=== PATIENT | male | born 1970 | race African-American/Black ===

== ENCOUNTER 2020-10-23 17:56 | Inpatient (IN) | payer OTHER, SELFPAY ==
[2020-10-23] VITALS (7 sets, daily range): BP systolic 98–120; BP diastolic 58–79; PULSE 68–90; RESP 16–20; O2SAT 96–99; BMI 33.0
--- NOTE | ~2020-10-23 | CT_ITS ---
EXAMINATION: CT KNEE WITHOUT CONTRAST, LEFT CLINICAL INFORMATION: Tibial fracture. COMPARISON: Left femur as well as left tibia and fibular fractures done earlier the same day. TECHNIQUE: Contiguous axial CT images of the left knee were obtained without contrast. Sagittal and coronal reformats were provided and reviewed. This CT examination was performed using dose optimization techniques as appropriate, variously including the following: *Automated exposure control. *Adjustment of mA and/or kV according to patient size (this includes techniques or standardized protocols for targeted exams where dose is matched to indication/reason for exam; i.e. extremities or head). *Use of iterative reconstruction technique. DOSE: 209 mGy-cm FINDINGS: There is a severely comminuted tibial plateau fracture with dominant oblique components extending through the tibial diaphysis. Additionally, there appears to be a dominant transverse component within the tibial diaphysis. Multiple fracture lines contact the left knee articular surface oriented in both the coronal and sagittal planes. There is severe comminution of the tibial spine extending to the posterior aspect of the tibial plateau as well as laterally adjacent to the proximal tibiofibular joint. There are innumerable displaced fracture fragments. The dominant articular surface fracture fragment measures up to 2.4 cm at the lateral tibial plateau with approximately 1.0 cm of cortical step-off. Findings are consistent with a Schatzker type fracture. No distal femoral fracture. No lytic or blastic osseous lesion. Large lipohemarthrosis. The visualized flexor and extensor tendons are grossly intact, however, evaluation is limited on CT examination. CT/CT knee LT wo con IMPRESSION: Severely comminuted and displaced tibial plateau fracture, likely consistent with a Schatzker type fracture. Large lipohemarthrosis.
--- NOTE | ~2020-10-23 | FL_ITS ---
EXAMINATION: Intraoperative fluoroscopy CLINICAL INFORMATION: ORIF left tibia COMPARISON: Left knee CT and radiographs of the left lower extremity October 23, 2020 TECHNIQUE: Intraoperative fluoroscopy was provided for use by Dr. Mcintosh. A total of 3 images were saved to PACS. A radiologist was not present during imaging. Today's dictation is only for administrative purposes to document intraoperative fluoroscopic usage. TOTAL FLUOROSCOPIC TIME: 0.4 minutes FL/FL guidance in OR FINDINGS~\^^ Intraoperative fluoroscopy provided for use by Dr. Mcintosh. Please see operative note for detailed findings.
--- NOTE | ~2020-10-23 | XR_ITS ---
EXAMINATION: XR ANKLE, LEFT CLINICAL INFORMATION: Fall. Suspected tibia-fibula fracture COMPARISON: None TECHNIQUE: AP and lateral views of the left ankle. FINDINGS: No fracture seen. Talar dome and ankle mortise are intact. XR/XR ankle LT 2V IMPRESSION: No acute osseous abnormality of the left ankle.
--- NOTE | ~2020-10-23 | XR_ITS ---
EXAMINATION: XR TIBIA-FIBULA, LEFT XR FEMUR. LEFT CLINICAL INFORMATION: Fall. Suspect fracture. COMPARISON: None TECHNIQUE: AP and lateral radiographs of the left tibia and fibula. AP and lateral radiographs of the left femur. FINDINGS: The left hip is in alignment. There is no fracture of the left femur. The major bony structures of the knee are in alignment. There is a complex comminuted tibial plateau including a comminuted transversely oriented fracture of the proximal tibial diaphysis. The plateau fracture involves the tibial spines, the medial and lateral tibial plateaus with diastases of the major fracture fragments by several millimeters. No definite depression of the plateau is visualized, though the fracture is not centered in these radiographs. The distal fragment of the diaphyseal fracture is displaced laterally and anteriorly by approximately 1 cm with 5 mm of overriding and anterior angulation of the fracture apex. No definite fracture of the fibula. The tibiofibular articulations appear to be maintained. There is a 3 mm metallic foreign body in the soft tissues lateral to the patella. On lateral radiograph there is a lipohemarthrosis. XR/XR tibia fibula LT 2V IMPRESSION: Complex comminuted of the tibial plateau involving both the medial and lateral aspects with diastases of the fracture fragments and suspected involvement of the tibial spines. No definite depression is identified, though further evaluation with dedicated radiographs of the knee could be helpful. There is an associated comminuted transversely oriented fracture of the proximal tibial diaphysis with anterolateral displacement of the distal fracture fragment. Together this would constitute a Schatzker fracture. 3 mm radiopaque density either within the soft tissues medial to the patella or on the skin surface.
--- NOTE | ~2020-10-23 | FL_ITS ---
EXAMINATION: Intraoperative fluoroscopy CLINICAL INFORMATION: Left tibia fracture COMPARISON: Intraoperative fluoroscopy October 25, [address] left knee October 23, 2020 TECHNIQUE: Intraoperative fluoroscopy was provided for use by Dr. Mcintosh. A total of 9 images were saved to PACS. A radiologist was not present during imaging. Today's dictation is only for administrative purposes to document intraoperative fluoroscopic usage. TOTAL FLUOROSCOPIC TIME: 3.2 minutes FL/FL guidance in OR FINDINGS~\^^ Intraoperative fluoroscopy provided for use by Dr. Mcintosh. Please see operative note for detailed findings.
--- NOTE | 2020-10-23 18:09 | ED_ITS ---
HPI - Fall General Chief Complaint: Extremity Injury, Lower Stated Complaint: LEFT LEG INJURY Time Seen by Provider: 10/23/20 19:24 Source: patient Mode of arrival: ambulatory Limitations: language barrier History of Present Illness HPI Narrative: 50-year-old male presents via EMS with visibly deformed left lower extremity. Patient was drinking beer with his friends, tried to jump over a fence, got his leg stuck on the fence. complaint: fall Onset (ago): hour(s) (Within the hour of arrival) Fall from: from height (distance) Fall witnessed: yes, by bystander Loss of consciousness: none Prolonged down time: no Symptoms prior to fall: other (Alcohol intoxication) Context: alcohol use Location of injury - extremities: left: lower leg Severity: severe Severity scale (1-10): 10 Quality: aching Associated symptoms (after fall): denies Related Data Home Medications Medication Instructions Recorded Confirmed lisinopril 30 mg tablet 1 tab PO DAILY 10/23/20 10/23/20 Allergies Allergy/AdvReac Type Severity Reaction Status Date / Time No Known Allergies Allergy Unverified 11/13/19 16:30 Review of Systems Review of Systems: Constitutional: No Fever, No Chills ENT/Mouth: No Ear Pain, No Hoarseness, No sore throat Eyes: No Eye Pain, No Swelling, No Redness, No Foreign Body Cardiovascular: No Chest Pain, No SOB Respiratory: No Cough, No Dyspnea Gastrointestinal: No Nausea, No Vomiting, No Diarrhea, No abdominal Pain Genitourinary: No Dysuria, No Hematuria Musculoskeletal: positive leg pain, No Myalgias, No Joint Swelling Skin: No Skin lacerations, No rash Neuro: No Weakness, No Numbness, No Paresthesias, No Loss of Consciousness, No Dizziness, No Headache Psych: No Anxiety/Panic, No Depression Heme/Lymph: no easy bruising, no Lymphadenopathy Endocrine: No Polyuria, No Polydipsia Yes all other systems are reviewed and are negative PMFSH Past Medical History Attestation statement: The following information was validated with the patient. Source: old records reviewed Medical History HTN (hypertension) Social History Social History Advance Directives: No Advance Directives Information Provided: Yes Physical Exam Vital Signs: Vital Signs: Last Vital Signs Pulse 68 10/23/20 22:25 Resp 16 10/23/20 23:10 BP 98/61 10/23/20 21:34 Pulse Ox 96 10/23/20 21:34 Body Mass Index 33.0 Appearance: Alert. Oriented X3. Moderate distress. Eyes: Pupils equal, round and reactive to light. ENT: Pharynx normal. Neck: Normal inspection. Neck supple. CVS: Normal heart rate and rhythm. Pulses normal. Respiratory: No respiratory distress. Breath sounds normal. Abdomen: Soft and nontender. Skin: Skin warm and dry. Normal skin color. Normal skin turgor. Extremities: Visibly deformed left lower extremity, laceration to the left knee, left hallux and left toe. Neuro: No motor deficit. No sensory deficit. Course Course Course Narrative: 50-year-old male presents with left lower extremity visible derangement after falling off of a fence. X-rays are positive for fracture. Discussion with Orthopedics at 7:09 p.m.. Patient has brisk capillary refill, equal pedal pulses. Pelvis is stable. No crepitus. The patient is alert oriented x4, states to be intoxicated but acutely aware of his surroundings. 7:35 p.m. Orthopedics at bedside. Plan is to admit for surgery for tomorrow morning. 9:36 p.m. splinting complete. Patient reports 8/10 pain, blood pressure 90/61. Will order fentanyl. [employer] supervisor utilized for all correspondence. 10:00 p.m. patient continues with brisk capillary refill and equal pulses to the extremities. Pain is well managed, fentanyl was not given, once patient was resting and splinting with complete, pain was 2/10. Dr. Mcintosh at bedside at 11:00 p.m. for evaluation. Consultations Consultation #1: Deyvi Time: 19:09 Consultation #2: Dayna Time: 22:00 Procedures Orthopedic Splinting/Casting Injury #1: Side: left Lower Extremity Injury Location: lower leg Lower Extremity Immobilizer: posterior splint, stirrup splint and [place] wrap MDM - Fall Differential Diagnosis Differential diagnosis: Likely dislocation and fracture Medical Records Attestation: I reviewed the patient's medical records. Lab Data Attestation: I reviewed the patient's lab results. Result diagrams: 10/23/20 19:53 10/23/20 19:56 Labs: Lab Results 10/23/20 10/23/20 10/23/20 Range/Units 19:53 19:56 19:56 WBC 6.4 (4.8-10.8) X10*3/uL RBC 4.52 L (4.60-5.80) X10*6/uL Hgb 14.2 (14.0-18.0) g/dl Hct 40.7 L (42-52) % MCV 90.0 (80-98) fL MCH 31.4 (27.0-33.0) pg MCHC 34.9 (31.0-36.0) g/dl RDW 12.6 (11.0-16.0) % Plt Count 112 L (160-400) X10*3/uL MPV 11.5 (9.4-12.4) fL Immature Gran % (Auto) 0.3 (0.0-0.4) % Neut % (Auto) 61.8 (45-73) % Lymph % (Auto) 28.7 (20-40) % [place] % (Auto) 7.8 (2-11) % Eos % (Auto) 0.6 (0-4) % Baso % (Auto) 0.8 (0-2) % Lymph # (Auto) 1.8 (1.2-4.9) X10*3/uL [place] # (Auto) 0.5 (0.1-1.2) X10*3/uL Eos # (Auto) 0.0 (0.0-0.4) X10*3/uL Baso # (Auto) 0.1 (0.0-0.2) X10*3/uL Abs Immat Gran (auto) 0.02 (0.00-0.03) X10*3/uL Absolute Neuts (auto) 4.0 (2.0-8.3) X10*3/uL Absolute Nucleated RBC 0.000 (0.0-0.012) X10*3/uL Nucleated RBC % (auto) 0.0 (0.0-0.2) /100WBC PT 12.2 (9.9-13.0) SEC INR 1.1 (0.9-1.1) APTT 34.4 (24.1-38.0) SEC Sodium 135 (135-145) mmol/L Potassium 4.1 (3.3-5.1) mmol/L Chloride 102 (96-108) mmol/L Carbon Dioxide 21 L (22-29) mmol/L Anion Gap 16 (12-20) BUN 13 (9-16) mg/dL Creatinine 0.93 (0.5-1.4) mg/dL Estim Creat Clear Calc 126.7 Estimated GFR > 60 Random Glucose 105 (60-115) mg/dL Calcium 9.1 (8.4-10.2) mg/dL COVID-19 ([facility]) (Negative) COVID-19 Clin Com Blood Type Antibody Screen 10/23/20 10/23/20 Range/Units 20:30 23:02 WBC (4.8-10.8) X10*3/uL RBC (4.60-5.80) X10*6/uL Hgb (14.0-18.0) g/dl Hct (42-52) % MCV (80-98) fL MCH (27.0-33.0) pg MCHC (31.0-36.0) g/dl RDW (11.0-16.0) % Plt Count (160-400) X10*3/uL MPV (9.4-12.4) fL Immature Gran % (Auto) (0.0-0.4) % Neut % (Auto) (45-73) % Lymph % (Auto) (20-40) % [place] % (Auto) (2-11) % Eos % (Auto) (0-4) % Baso % (Auto) (0-2) % Lymph # (Auto) (1.2-4.9) X10*3/uL [place] # (Auto) (0.1-1.2) X10*3/uL Eos # (Auto) (0.0-0.4) X10*3/uL Baso # (Auto) (0.0-0.2) X10*3/uL Abs Immat Gran (auto) (0.00-0.03) X10*3/uL Absolute Neuts (auto) (2.0-8.3) X10*3/uL Absolute Nucleated RBC (0.0-0.012) X10*3/uL Nucleated RBC % (auto) (0.0-0.2) /100WBC PT (9.9-13.0) SEC INR (0.9-1.1) APTT (24.1-38.0) SEC Sodium (135-145) mmol/L Potassium (3.3-5.1) mmol/L Chloride (96-108) mmol/L Carbon Dioxide (22-29) mmol/L Anion Gap (12-20) BUN (9-16) mg/dL Creatinine (0.5-1.4) mg/dL Estim Creat Clear Calc Estimated GFR Random Glucose (60-115) mg/dL Calcium (8.4-10.2) mg/dL COVID-19 ([facility]) Negative (Negative) COVID-19 Clin Com See Note Blood Type O Positive Antibody Screen NEGATIVE Imaging Data Tib fib, femur, ankle x-ray: Attestation: I personally reviewed and interpreted this imaging study as follows: Radiologist's impression: EXAMINATION: XR TIBIA-FIBULA, LEFT XR FEMUR. LEFT CLINICAL INFORMATION: Fall. Suspect fracture.? COMPARISON: None? TECHNIQUE: AP and lateral radiographs of the left tibia and fibula. AP and lateral radiographs of the left femur.? FINDINGS: The left hip is in alignment. There is no fracture of the left femur. The major bony structures of the knee are in alignment. There is a complex comminuted tibial plateau including a comminuted transversely oriented fracture of the proximal tibial diaphysis. The plateau fracture involves the tibial spines, the medial and lateral tibial plateaus with diastases of the major fracture fragments by several millimeters. No definite depression of the plateau is visualized, though the fracture is not centered in these radiographs. The distal fragment of the diaphyseal fracture is displaced laterally and anteriorly by approximately 1 cm with 5 mm of overriding and anterior angulation of the fracture apex. No definite fracture of the fibula. The tibiofibular articulations appear to be maintained. There is a 3 mm metallic foreign body in the soft tissues lateral to the patella.? On lateral radiograph there is a lipohemarthrosis. XR/XR femur LT 2V IMPRESSION: Complex comminuted of the tibial plateau involving both the medial and lateral aspects with diastases of the fracture fragments and suspected involvement of the tibial spines. No definite depression is identified, though further evaluation with dedicated radiographs of the knee could be helpful. There is an associated comminuted transversely oriented fracture of the proximal tibial diaphysis with anterolateral displacement of the distal fracture fragment. Together this would constitute a Schatzker fracture. ? 3 mm radiopaque density either within the soft tissues medial to the patella or on the skin surface. Knee CT: Attestation: I personally reviewed and interpreted this imaging study as follows: Radiologist's impression: FINDINGS: There is a severely comminuted tibial plateau fracture with dominant oblique components extending through the tibial diaphysis. Additionally, there appears to be a dominant transverse component within the tibial diaphysis. Multiple fracture lines contact the left knee articular surface oriented in both the coronal and sagittal planes. There is severe comminution of the tibial spine extending to the posterior aspect of the tibial plateau as well as laterally adjacent to the proximal tibiofibular joint. There are innumerable displaced fracture fragments. The dominant articular surface fracture fragment measures up to 2.4 cm at the lateral tibial plateau with approximately 1.0 cm of cortical step-off. Findings are consistent with a Schatzker type fracture. No distal femoral fracture. No lytic or blastic osseous lesion. Large lipohemarthrosis. The visualized flexor and extensor tendons are grossly intact, however, evaluation is limited on CT examination. CT/CT knee LT wo con IMPRESSION: Severely comminuted and displaced tibial plateau fracture, likely consistent with a Schatzker type fracture. Large lipohemarthrosis.? ECG Data Attestation: I personally reviewed and interpreted this ECG as follows: ECG interpretation date: 10/23/20 ECG interpretation time: 20:06 Prior ECG tracings: not available for review Interpretation: Vent. Rate : 077 BPM ? ? Atrial Rate : 077 BPM ?? P-R Int : 154 ms? QRS Dur : 110 ms ? ? QT Int : 396 ms ? ? ? P-R-T Axes : 046 005 015 degrees ?? QTc Int : 448 ms ? Normal sinus rhythm Normal ECG No previous ECGs available Critical Care Time Critical Care Time Critical Care Time: Yes Total Critical Care Time: 45 Attestation: I have personally provided critical care time exclusive of time spent on separately billable procedures. Time includes review of laboratory data, radiology results, discussion with consultants, and monitoring for potential decompensation. Interventions were performed as documented. Discharge Plan Discharge Clinical Impression: Fracture of tibial plateau Qualifiers: Encounter type: initial encounter Fracture type: closed Laterality: left Qualified Code(s): S82.142A - Displaced bicondylar fracture of left tibia, initial encounter for closed fracture Patient Disposition: Admitted As Inpatient Interventions: Admission Worksheet (ED) Last Done: 10/24/20 00:40 Discharge Date/Time: 10/24/20 00:40
--- NOTE | 2020-10-23 19:25 | ECG_ITS ---
Test Reason : ETOH Blood Pressure : / mmHG Vent. Rate : 077 BPM Atrial Rate : 077 BPM P-R Int : 154 ms QRS Dur : 110 ms QT Int : 396 ms P-R-T Axes : 046 005 015 degrees QTc Int : 448 ms Normal sinus rhythm Normal ECG No previous ECGs available Referred By: Vy Clark Electronically Signed By:LITZY TREVIÑO
[2020-10-23] MEDS: Morphine Sulfate 4 MG/ML CARTRIDGE IVPUSH (19:34)
[2020-10-23] MEDS: Diphth,Pertus(ACell),Tet Adult 0.5 ML SYRINGE IM (19:38)
[2020-10-23 19:59] LABS: MANUAL DIFF FLAG NO
[2020-10-23 20:03] LABS: Basophils Absolute Auto 0.1 X10*3/uL (0.0-0.2); Basophils Percent Auto 0.8 % (0-2); Eosinophils Percent Auto 0.6 % (0-4); Hematocrit 40.7 % (42-52); Hemoglobin 14.2 g/dl (14.0-18.0); Imm Gran Abs Auto 0.02 X10*3/uL (0.00-0.03); Imm Gran Pct Auto 0.3 % (0.0-0.4); Lymphocytes Absolute Auto 1.8 X10*3/uL (1.2-4.9); Lymphocytes Percent Auto 28.7 % (20-40); Mean Corpuscular HGB Conc 34.9 g/dl (31.0-36.0); Mean Corpuscular Hemoglobin 31.4 pg (27.0-33.0); Mean Platelet Volume 11.5 fL (9.4-12.4); Monocytes Absolute Auto 0.5 X10*3/uL (0.1-1.2); Monocytes Percent Auto 7.8 % (2-11); Neutrophils Percent Auto 61.8 % (45-73); Platelet Count 112 X10*3/uL (160-400); Red Blood Count 4.52 X10*6/uL (4.60-5.80); Red Cell Distribution Width 12.6 % (11.0-16.0); White Blood Count 6.4 X10*3/uL (4.8-10.8)
[2020-10-23 20:09] LABS: INTERNATIONAL NORM RATIO 1.1 (0.9-1.1); Prothrombin Time 12.2 SEC (9.9-13.0)
[2020-10-23 20:11] LABS: Partial Thromboplastin Time 34.4 SEC (24.1-38.0)
[2020-10-23 20:20] LABS: Anion Gap 16 (12-20); Blood Urea Nitrogen 13 mg/dL (9-16); Calcium 9.1 mg/dL (8.4-10.2); Carbon Dioxide 21 mmol/L (22-29); Chloride 102 mmol/L (96-108); Creatinine Clr Calc Pharmacy 126.7; Estimated Glomerular Filt Rate > 60; Glucose Random 105 mg/dL (60-115); Potassium 4.1 mmol/L (3.3-5.1); Sodium 135 mmol/L (135-145)
[2020-10-23] MEDS: HYDROmorphone HCl 2 MG/ML VIAL IVPUSH (21:19)
[2020-10-23] MEDS: fentaNYL citrate/PF 100 MCG/2 ML VIAL 50 MCG IVPUSH (23:10)
--- NOTE | 2020-10-23 23:15 | PC.NURSE ---
pt medicated with Dilaudid at 21:19 prior to cast/splint application pt tolerated cast application well and immediately fell asleep upon completion. pt observed sleeping by this nurse after application of cast, no complaints of pain or facial grimacing noted. per provider, ok to hold subsequent fentanyl order until this time as to not over-sedate pt. this nurse medicated pt with fentanyl per APR. pt laying in bed supine with L leg elevated on pillows. 02 sat probe on finger. no distress noted at this time. call santiago in reach.
[2020-10-23 23:24] LABS: COVID-19 Test Negative (Negative)
[2020-10-23] MEDS: Dextrose 5 % and 0.45 % NaCl 1,000 ML 80 ML IVCONT (23:41)
[2020-10-24] MEDS: 0.9 % Sodium Chloride Flush 3 ML SYRINGE IVFLUSH (00:01)
--- NOTE | 2020-10-24 00:25 | PC.NURSE ---
nurse to nurse report given to Evelio GONZALES
[2020-10-24 00:47] VITALS: BMI 34.0
[2020-10-24 01:47] VITALS: BP 90/62; PULSE 70; RESP 17; TEMP 36.3; O2SAT 96
[2020-10-24] MEDS: HYDROmorphone HCl 0.5 MG/0.5 ML SYRINGE 0.25 MG IVPUSH (02:10)
[2020-10-24] MEDS: oxyCODONE HCl Immed Release 5 MG TABLET 10 MG PO ×2 (02:52→18:41)
[2020-10-24 03:53] VITALS: BP 94/51; PULSE 76; RESP 19; TEMP 36.9; O2SAT 97
--- NOTE | 2020-10-24 04:46 | P.CONAN_ITS ---
HPI - Anesthesia Eval Consult details Narrative: left tibia fracture PMFSH Active Problems Active Problems: All Active Problems (Updated 10/23/20 @ 20:27 by Vy Clark NP) Fracture of tibial plateau (Acute) Past Medical History Medical History HTN (hypertension) Functional capacity: independent ambulation Social History Social History Household Members: Family Housing: House Patient Tobacco Use Status: Current everyday Tobacco user Tobacco use type: Cigarette Cigarette Packs Per Day: 1 Cigarettes Per Day: 20.0 Years Smoked: 20 Smoked in Last 30 Days: Yes Use of substances other than those prescribed or required for medical reasons: Yes Currently Displaying Signs/Symptoms of Drug Intoxication Withdrawal: No Have you been hit, kicked, punched, or otherwise hurt by someone within the past year? If so, by whom?: No Do you feel safe in your current relationship?: Yes Is there a partner from a previous relationship who is making you feel unsafe now?: No Are you made to feel afraid or neglected: No Are you DNR?: No Advance Directives: No Advance Directives Information Provided: Yes Do you have thoughts of harming others: None Do you have a plan to hurt others: No Plan Recently lost weight without trying: No Eating poorly because of decreased appetite: No Nutrition Risks: No Nutritional Risk Poor oral hygiene: No Meds Allergies Allergy/AdvReac Type Severity Reaction Status Date / Time No Known Allergies Allergy Verified 10/24/20 08:48 Active Medications: Current Medications Generic Name Dose Route Start Last Admin Trade Name Freq PRN Reason Stop Dose Admin Acetaminophen 650 mg 10/23/20 22:56 Acetaminophen Supp 650 Mg Supp.Rect FL Q6H PRN Pain, Mild (Pain Scale 1-3) Docusate Sodium 100 mg 10/23/20 22:56 10/23/20 23:41 Docusate Sodium 100 Mg Capsule PO Not Given BID MARIELLE Hydromorphone HCl 0.25 mg 10/23/20 22:56 10/24/20 02:10 Hydromorphone Hcl 0.5 Mg/0.5 Ml Syringe IVPUSH 0.25 mg Q4H PRN Administration Pain, Moderate (Pain Scale 4-6 Protocol Dextrose/Sodium Chloride 1,000 mls @ 80 mls/hr 10/23/20 22:56 10/23/20 23:41 D51/2ns IVCONT 80 mls/hr .[id number] MARIELLE Administration Cefazolin Sodium/Dextrose 2 gm in 50 mls @ 100 mls/hr 10/24/20 07:00 Ancef IV 10/24/20 07:29 PREOP ONE Ondansetron HCl 4 mg 10/23/20 22:56 Ondansetron Odt 4 Mg Tab.Rapdis TRANSLINGU Q6H PRN nausea Oxycodone HCl 10 mg 10/23/20 22:56 10/24/20 02:52 Oxycodone Hcl Immed Release 5 Mg Tablet PO 10 mg Q6H PRN Administration pain Oxycodone HCl 10 mg 10/23/20 22:56 10/23/20 23:42 Oxycodone Hcl Er 10 Mg Tab.Er.12h PO Not Given BID MARIELLE Sodium Chloride 3 ml 10/24/20 00:00 10/24/20 00:01 0.9 % Sodium Chloride Flush 3 Ml Syringe IVFLUSH 3 ml QSHIFT MARIELLE Administration Home Medications Medication Instructions Recorded Confirmed Last Taken Type lisinopril 30 mg tablet 1 tab PO DAILY 10/23/20 10/23/20 Unknown History Exam Exam Date and Time: October 24, 2020 0446 Height,Weight and Vital Signs: Height 6 ft 1 in Weight 117.2 kg Last Vital Signs Temp 98.4 F 10/24/20 03:53 Pulse 76 10/24/20 03:53 Resp 19 10/24/20 03:53 BP 94/51 L 10/24/20 03:53 Pulse Ox 97 10/24/20 03:53 Pertinent Lab Results Pertinent Lab Results: Laboratory Tests 10/23/20 10/23/20 10/23/20 19:53 19:56 19:56 WBC 6.4 RBC 4.52 L Hgb 14.2 Hct 40.7 L MCV 90.0 MCH 31.4 MCHC 34.9 RDW 12.6 Plt Count 112 L MPV 11.5 Immature Gran % (Auto) 0.3 Neut % (Auto) 61.8 Lymph % (Auto) 28.7 [place] % (Auto) 7.8 Eos % (Auto) 0.6 Baso % (Auto) 0.8 Lymph # (Auto) 1.8 [place] # (Auto) 0.5 Eos # (Auto) 0.0 Baso # (Auto) 0.1 Abs Immat Gran (auto) 0.02 Absolute Neuts (auto) 4.0 Absolute Nucleated RBC 0.000 Nucleated RBC % (auto) 0.0 PT 12.2 INR 1.1 APTT 34.4 Sodium 135 Potassium 4.1 Chloride 102 Carbon Dioxide 21 L Anion Gap 16 BUN 13 Creatinine 0.93 Estim Creat Clear Calc 126.7 Estimated GFR > 60 Random Glucose 105 Calcium 9.1 COVID-19 ([facility]) COVID-19 [facility] Com Blood Type Antibody Screen 10/23/20 10/23/20 20:30 23:02 WBC RBC Hgb Hct MCV MCH MCHC RDW Plt Count MPV Immature Gran % (Auto) Neut % (Auto) Lymph % (Auto) [place] % (Auto) Eos % (Auto) Baso % (Auto) Lymph # (Auto) [place] # (Auto) Eos # (Auto) Baso # (Auto) Abs Immat Gran (auto) Absolute Neuts (auto) Absolute Nucleated RBC Nucleated RBC % (auto) PT INR APTT Sodium Potassium Chloride Carbon Dioxide Anion Gap BUN Creatinine Estim Creat Clear Calc Estimated GFR Random Glucose Calcium COVID-19 ([facility]) Negative COVID-19 Clin Com See Note Blood Type O Positive Antibody Screen NEGATIVE
[2020-10-24] MEDS: HYDROmorphone HCl 2 MG/ML VIAL 1 MG IVPUSH (05:17)
--- NOTE | 2020-10-24 06:30 | MHC.PIE ---
p; pt c/opain 12/05 to lt leg. prn dilaudid 0.25 given with some effect for short time. prn oxy given with little effect. i; dr kumar notified. new order dilaudid 1 mg iv now e; will con to [facility]
[2020-10-24 07:01] VITALS: BP 100/54; PULSE 80; RESP 20; TEMP 36.1; O2SAT 96
[2020-10-24 07:31] LABS: MANUAL DIFF FLAG NO
[2020-10-24 07:40] LABS: Basophils Percent Auto 0.4 % (0-2); Eosinophils Absolute Auto 0.1 X10*3/uL (0.0-0.4); Eosinophils Percent Auto 1.2 % (0-4); Hematocrit 37.2 % (42-52); Hemoglobin 12.9 g/dl (14.0-18.0); Imm Gran Abs Auto 0.03 X10*3/uL (0.00-0.03); Imm Gran Pct Auto 0.4 % (0.0-0.4); Lymphocytes Absolute Auto 1.8 X10*3/uL (1.2-4.9); Lymphocytes Percent Auto 26.8 % (20-40); Mean Corpuscular HGB Conc 34.7 g/dl (31.0-36.0); Mean Corpuscular Hemoglobin 31.4 pg (27.0-33.0); Mean Corpuscular Volume 90.5 fL (80-98); Mean Platelet Volume 12.2 fL (9.4-12.4); Monocytes Absolute Auto 0.6 X10*3/uL (0.1-1.2); Monocytes Percent Auto 8.3 % (2-11); Neutrophils Absolute Auto 4.3 X10*3/uL (2.0-8.3); Neutrophils Percent Auto 62.9 % (45-73); Platelet Count 111 X10*3/uL (160-400); Red Blood Count 4.11 X10*6/uL (4.60-5.80); Red Cell Distribution Width 12.6 % (11.0-16.0); White Blood Count 6.8 X10*3/uL (4.8-10.8)
[2020-10-24 08:10] LABS: Anion Gap 12 (12-20); Blood Urea Nitrogen 10 mg/dL (9-16); Calcium 8.8 mg/dL (8.4-10.2); Carbon Dioxide 21 mmol/L (22-29); Chloride 104 mmol/L (96-108); Creatinine Clr Calc Pharmacy 153.6; Estimated Glomerular Filt Rate > 60; Glucose Fasting 111 mg/dL (60-99); Potassium 4.3 mmol/L (3.3-5.1); Sodium 133 mmol/L (135-145)
--- NOTE | 2020-10-24 08:14 | P.CONHOSP_ITS ---
History of Present Illness Data of Consult Service Date: 10/24/20 Primary Care Provider: Unknown Physician HPI Reason for consult: Pre op, HTN managment 50 year old male with HTN who is admitted due to tibia plateau fracture. He was supposedly drinking beer with friends and tried to jump over a fence, got his leg stuck and landed wrongly and sustained Severely comminuted and displaced tibial plateau fracture on left side. Review of Systems Review of Systems: Gen: no fever Resp: no sob, no cough CV: no chest, no GAY, no leg edema GI: No n/v, no abd pain Neuro: No confusion MSK: pain in left knee area [facility] Medical History (Updated 10/24/20 @ 08:30 by Jose Martin Copeland MD) HTN (hypertension) Functional capacity: independent ambulation Pertinent family history: Diabetes, HTN, chol Social History Household Members: Family Housing: House Patient Tobacco Use Status: Current someday Tobacco user Tobacco use type: Cigarette Use of substances other than those prescribed or required for medical reasons: No Have you been hit, kicked, punched, or otherwise hurt by someone within the past year? If so, by whom?: No Do you feel safe in your current relationship?: Yes Is there a partner from a previous relationship who is making you feel unsafe now?: No Are you made to feel afraid or neglected: No Advance Directives: No Advance Directives Information Provided: Yes Do you have thoughts of harming others: None Do you have a plan to hurt others: No Plan Recently lost weight without trying: No Eating poorly because of decreased appetite: No Nutrition Risks: No Nutritional Risk Poor oral hygiene: No Meds Allergies Allergy/AdvReac Type Severity Reaction Status Date / Time No Known Allergies Allergy Unverified 11/13/19 16:30 Active Medications: Current Medications Generic Name Dose Route Start Last Admin Trade Name Freq PRN Reason Stop Dose Admin Acetaminophen 650 mg 10/23/20 22:56 Acetaminophen Supp 650 Mg Supp.Rect [place] Q6H PRN Pain, Mild (Pain Scale 1-3) Docusate Sodium 100 mg 10/23/20 22:56 10/23/20 23:41 Docusate Sodium 100 Mg Capsule PO Not Given BID MARIELLE Hydromorphone HCl 0.25 mg 10/23/20 22:56 10/24/20 02:10 Hydromorphone Hcl 0.5 Mg/0.5 Ml Syringe IVPUSH 0.25 mg Q4H PRN Administration Pain, Moderate (Pain Scale 4-6 Protocol Dextrose/Sodium Chloride 1,000 mls @ 80 mls/hr 10/23/20 22:56 10/23/20 23:41 D51/2ns IVCONT 80 mls/hr .[id number] MARIELLE Administration Ondansetron HCl 4 mg 10/23/20 22:56 Ondansetron Odt 4 Mg Tab.Rapdis TRANSLINGU Q6H PRN nausea Oxycodone HCl 10 mg 10/23/20 22:56 10/24/20 02:52 Oxycodone Hcl Immed Release 5 Mg Tablet PO 10 mg Q6H PRN Administration pain Oxycodone HCl 10 mg 10/23/20 22:56 10/23/20 23:42 Oxycodone Hcl Er 10 Mg Tab.Er.12h PO Not Given BID MARIELLE Sodium Chloride 3 ml 10/24/20 00:00 10/24/20 00:01 0.9 % Sodium Chloride Flush 3 Ml Syringe IVFLUSH 3 ml QSHIFT MARIELLE Administration Home Medications Medication Instructions Recorded Confirmed Last Taken Type lisinopril 30 mg tablet 1 tab PO DAILY 10/23/20 10/23/20 Unknown History Physical Exam Vital Signs and Narrative: Vital Signs: Last Vital Signs Temp 97 F 10/24/20 07:01 Pulse 80 10/24/20 07:01 Resp 20 10/24/20 07:01 BP 100/54 L 10/24/20 07:01 Pulse Ox 96 10/24/20 07:01 Body Mass Index 34.0 Results Labs CBC and Chem 7: 10/24/20 06:18 10/24/20 06:18 Labs: Laboratory Results - last 24 hr 10/23/20 10/23/20 10/23/20 19:53 19:56 19:56 MCV 90.0 MCH 31.4 MCHC 34.9 RDW 12.6 Plt Count 112 L MPV 11.5 Immature Gran % (Auto) 0.3 Neut % (Auto) 61.8 Lymph % (Auto) 28.7 [place] % (Auto) 7.8 Eos % (Auto) 0.6 Baso % (Auto) 0.8 Lymph # (Auto) 1.8 [place] # (Auto) 0.5 Eos # (Auto) 0.0 Baso # (Auto) 0.1 Abs Immat Gran (auto) 0.02 Absolute Neuts (auto) 4.0 Absolute Nucleated RBC 0.000 Nucleated RBC % (auto) 0.0 PT 12.2 INR 1.1 APTT 34.4 Anion Gap 16 Estim Creat Clear Calc 126.7 Estimated GFR > 60 Random Glucose 105 Fasting Glucose Calcium 9.1 COVID-19 ([facility]) COVID-19 Clin Com Blood Type Antibody Screen 10/23/20 10/23/20 10/24/20 20:30 23:02 06:18 MCV 90.5 MCH 31.4 MCHC 34.7 RDW 12.6 Plt Count 111 L MPV 12.2 Immature Gran % (Auto) 0.4 Neut % (Auto) 62.9 Lymph % (Auto) 26.8 [place] % (Auto) 8.3 Eos % (Auto) 1.2 Baso % (Auto) 0.4 Lymph # (Auto) 1.8 [place] # (Auto) 0.6 Eos # (Auto) 0.1 Baso # (Auto) 0.0 Abs Immat Gran (auto) 0.03 Absolute Neuts (auto) 4.3 Absolute Nucleated RBC 0.000 Nucleated RBC % (auto) 0.0 PT INR APTT Anion Gap Estim Creat Clear Calc Estimated GFR Random Glucose Fasting Glucose Calcium COVID-19 ([facility]) Negative COVID-19 Clin Com See Note Blood Type O Positive Antibody Screen NEGATIVE 10/24/20 06:18 MCV MCH MCHC RDW Plt Count MPV Immature Gran % (Auto) Neut % (Auto) Lymph % (Auto) [place] % (Auto) Eos % (Auto) Baso % (Auto) Lymph # (Auto) [place] # (Auto) Eos # (Auto) Baso # (Auto) Abs Immat Gran (auto) Absolute Neuts (auto) Absolute Nucleated RBC Nucleated RBC % (auto) PT INR APTT Anion Gap 12 Estim Creat Clear Calc 153.6 Estimated GFR > 60 Random Glucose Fasting Glucose 111 H Calcium 8.8 COVID-19 ([facility]) COVID-19 Clin Com Blood Type Antibody Screen Imaging Radiologist's Impressions: Impressions Ankle X-Ray 10/23/20 18:10 IMPRESSION: No acute osseous abnormality of the left ankle. Femur X-Ray 10/23/20 18:10 IMPRESSION: Complex comminuted of the tibial plateau involving both the medial and lateral aspects with diastases of the fracture fragments and suspected involvement of the tibial spines. No definite depression is identified, though further evaluation with dedicated radiographs of the knee could be helpful. There is an associated comminuted transversely oriented fracture of the proximal tibial diaphysis with anterolateral displacement of the distal fracture fragment. Together this would constitute a Schatzker fracture. 3 mm radiopaque density either within the soft tissues medial to the patella or on the skin surface. Tibia/Fibula X-Ray 10/23/20 18:10 IMPRESSION: Complex comminuted of the tibial plateau involving both the medial and lateral aspects with diastases of the fracture fragments and suspected involvement of the tibial spines. No definite depression is identified, though further evaluation with dedicated radiographs of the knee could be helpful. There is an associated comminuted transversely oriented fracture of the proximal tibial diaphysis with anterolateral displacement of the distal fracture fragment. Together this would constitute a Schatzker fracture. 3 mm radiopaque density either within the soft tissues medial to the patella or on the skin surface. Knee CT 10/23/20 19:30 IMPRESSION: Severely comminuted and displaced tibial plateau fracture, likely consistent with a Schatzker type fracture. Large lipohemarthrosis. Assessment and Plan (1) Fracture of tibial plateau: Qualifiers: Encounter type: initial encounter Fracture type: closed Laterality: left Qualified Code(s): S82.142A - Displaced bicondylar fracture of left tibia, initial encounter for closed fracture Status: Acute (2) HTN (hypertension): Status: Acute 56/m with HTN and now with traumatic left Severely comminuted and displaced tibial plateau fracture ' Plan: Tibia plateau fracture--to be managed by Ortho. Patient has no heart disease, no long disease, no angina, no HF symptoms and therefore should be low risk for surgery. His ECG is reviewed and is normal. No further testing needed before surgery. Dilaudid for pain HTN--he takes Lisinopril 40 at home, BP is 100/54 now and suggest holding it at this time.
[2020-10-24] MEDS: oxyCODONE HCl ER 10 MG TAB.ER.12H PO ×2 (08:29→20:14)
[2020-10-24] MEDS: Docusate Sodium 100 MG CAPSULE PO ×2 (08:29→20:14)
[2020-10-24] MEDS: HYDROmorphone HCl 0.5 MG/0.5 ML SYRINGE IVPUSH ×3 (08:40→16:42)
[2020-10-24] MEDS: Dextrose 5 % and 0.45 % NaCl 1,000 ML 80 ML IVCONT ×2 (08:41→20:19)
--- NOTE | 2020-10-24 11:55 | PC.NURSE ---
Dr Mcintosh in to see pt. dressing taken down and replaced with new missy wrap. Surgery on hold for today due to swelling in left leg. Leg elevated on a couple of pillows.
[2020-10-24 12:00] VITALS: BP 111/71; PULSE 93; RESP 20; TEMP 36.3
[2020-10-24 15:30] VITALS: BP 114/62; PULSE 87; RESP 19; TEMP 37; O2SAT 97
--- NOTE | 2020-10-24 15:41 | MHC.CM.PN ---
CM ATTEMPTED TO MEET WITH PT WHO WAS SLEEPING. CM TO REVISIT
--- NOTE | 2020-10-24 16:09 | PM.HPOR ---
History of Present Illness History of Present Illness Date of Service: 10/24/20 Chief complaint: Left distal femur fracture Narrative: David Valladares is a 50 year old male who presented to the ED after a fall while inebriated. He presented with inability to ambulate and a painful left knee and lower leg. He denies LOC, denies other injuries. ED imaging revealed a complex tibial plateau fracture. He was admitted to the orthopedic service. Review of Systems Review of Systems: Yes all other systems are reviewed and are negative Eyes: Eyes: Reports no additional eye complaints ENT: Reports system reviewed and no additional complaints, except as documented Cardiovascular: Cardiovascular: Reports no additional cardiovascular complaints Respiratory: Respiratory: Reports no additional respiratory complaints Gastrointestinal: Gastrointestinal: Reports no additional gastrointestinal complaints Musculoskeletal: Musculoskeletal: Reports as per HPI Integumentary/Breasts: Skin/Breast: Reports system reviewed and no additional complaints, except as docu Neurologic: Reports system reviewed and no additional complaints, except as documented and Reports as per HPI Psychiatric: Psychiatric: Reports no additional psychiatric complaints [facility] Past Medical History Medical History (Updated 10/24/20 @ 08:30 by Jose Martin Copeland MD) HTN (hypertension) Functional capacity: independent ambulation Social History Social History Household Members: Family Housing: House Patient Tobacco Use Status: Current someday Tobacco user Tobacco use type: Cigarette Use of substances other than those prescribed or required for medical reasons: No Have you been hit, kicked, punched, or otherwise hurt by someone within the past year? If so, by whom?: No Do you feel safe in your current relationship?: Yes Is there a partner from a previous relationship who is making you feel unsafe now?: No Are you made to feel afraid or neglected: No Advance Directives: No Advance Directives Information Provided: Yes Do you have thoughts of harming others: None Do you have a plan to hurt others: No Plan Recently lost weight without trying: No Eating poorly because of decreased appetite: No Nutrition Risks: No Nutritional Risk Poor oral hygiene: No Meds Allergies Allergy/AdvReac Type Severity Reaction Status Date / Time No Known Allergies Allergy Verified 10/24/20 08:48 Active Medications: Current Medications Generic Name Dose Route Start Last Admin Trade Name Freq PRN Reason Stop Dose Admin Acetaminophen 650 mg 10/23/20 22:56 Acetaminophen Supp 650 Mg Supp.Rect [place] Q6H PRN Pain, Mild (Pain Scale 1-3) Docusate Sodium 100 mg 10/23/20 22:56 10/24/20 08:29 Docusate Sodium 100 Mg Capsule PO 100 mg BID MARIELLE Administration Hydromorphone HCl 0.5 mg 10/24/20 08:36 10/24/20 12:33 Hydromorphone Hcl 0.5 Mg/0.5 Ml Syringe IVPUSH 0.5 mg Q4H PRN Administration Pain, Moderate (Pain Scale 4-6 Protocol Dextrose/Sodium Chloride 1,000 mls @ 80 mls/hr 10/23/20 22:56 10/24/20 08:41 D51/2ns IVCONT 80 mls/hr .[id number] MARIELLE Administration Ondansetron HCl 4 mg 10/23/20 22:56 Ondansetron Odt 4 Mg Tab.Rapdis TRANSLINGU Q6H PRN nausea Oxycodone HCl 10 mg 10/23/20 22:56 10/24/20 02:52 Oxycodone Hcl Immed Release 5 Mg Tablet PO 10 mg Q6H PRN Administration pain Oxycodone HCl 10 mg 10/23/20 22:56 10/24/20 08:29 Oxycodone Hcl Er 10 Mg Tab.Er.12h PO 10 mg BID MARIELLE Administration Sodium Chloride 3 ml 10/24/20 00:00 10/24/20 14:18 0.9 % Sodium Chloride Flush 3 Ml Syringe IVFLUSH Not Given QSHIFT [facility] Home Medications Medication Instructions Recorded Confirmed Last Taken Type lisinopril 30 mg tablet 1 tab PO DAILY 10/23/20 10/23/20 Unknown History Physical Exam Vital Signs: Vital Signs: Last Vital Signs Temp 98.6 F 10/24/20 15:30 Pulse 87 10/24/20 15:30 Resp 19 10/24/20 15:30 BP 114/62 10/24/20 15:30 Pulse Ox 97 10/24/20 15:30 Body Mass Index 34.0 Const: General: cooperative, healthy appearing, no acute distress, well developed and alert HENMT: Head: Yes normal to inspection, Yes normocephalic and Yes atraumatic Mouth: moist mucous membranes Eyes: General: appearance normal, both eyes and all related structures EOM: EOMs intact bilaterally Chest: Other: no audible wheezing. Resp: Other: No audible wheezing Effort & Inspection: normal respiratory effort Cardio: Other: Radial pulse palpable with no rythmic abnormalities Back/Spine/Pelvis: Cervical Spine: normal cervical lordosis Skin: General skin exam: no rashes or lesions noted Neuro: General: no focal motor deficits Extrem: Other: There is a supeficial abrasion over the lateral anterior knee and the great toe. All lower extremity compartments are soft but full with moderate to severe STS without blistering. DP+2. Firing ehl/ta/gc. SILT Psych: Appearance: grossly normal and well kempt Mental Status: mental status grossly normal Speech and movement: Normal speech and movement present Affect: normal affect Attitude: cooperative Results Labs Result Diagrams: 10/24/20 06:18 10/24/20 06:18 Labs: Abnormal lab results 10/23/20 10/23/20 10/24/20 Range/Units 19:53 19:56 06:18 RBC 4.52 L 4.11 L (4.60-5.80) X10*6/uL Hgb 12.9 L (14.0-18.0) g/dl Hct 40.7 L 37.2 L (42-52) % Plt Count 112 L 111 L (160-400) X10*3/uL Sodium (135-145) mmol/L Carbon Dioxide 21 L (22-29) mmol/L Fasting Glucose (60-99) mg/dL 10/24/20 Range/Units 06:18 RBC (4.60-5.80) X10*6/uL Hgb (14.0-18.0) g/dl Hct (42-52) % Plt Count (160-400) X10*3/uL Sodium 133 L (135-145) mmol/L Carbon Dioxide 21 L (22-29) mmol/L Fasting Glucose 111 H (60-99) mg/dL H & H 10/23/20 10/24/20 Range/Units 19:53 06:18 Hgb 14.2 12.9 L (14.0-18.0) g/dl Hct 40.7 L 37.2 L (42-52) % Coagulation 10/23/20 Range/Units 19:56 INR 1.1 (0.9-1.1) All other labs normal. 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 He has a comminuted tibial plateau fracture ( Schatzker 6) . It is too swollen for immediate ORIF. I recommend external fixation to let the soft tissue swelling improve. He will need ORIF and I discussed this with him including the risk of infection, pain ,arthritis, nerve injury, need for further surgery as well as the risk of bleeding and blood clots. We will proceed forward with external fixation unless his swelling improves dramatically which is unlikely. Quality Stroke Does the patient have a stroke diagnosis?: No VTE Prior VTE?: No VTE Risk Level:: Medical - moderate - high VTE Device Contraindication: N/A - Device Ordered VTE Drug Contraindication: Treatment Not Indicated Procedures Date of Service Date of Service: 10/24/20
--- NOTE | 2020-10-24 17:39 | P.HPOP_ITS ---
History of Present Illness History of Present Illness Date of Service: 10/23/20 Chief complaint: Left distal femur fracture Narrative: David Valladares is a 50 year old male with a past medical history only significant for hypertension who presents to the emergency room after trying to climb over a fence when his flip-flop got stuck in the fence he that fell. The patient admits to alcoholic intake of 540 oz beers this evening. After the patient fell the patient was unable to ambulate and had immense pain. He then presented to the emergency department where x-rays were obtained was found to have a significant left tibial plateau fracture. Orthopedics was then consulted for further evaluation and treatment. Review of Systems Review of Systems: Yes all other systems are reviewed and are negative PMFSH Past Medical History Medical History (Updated 10/24/20 @ 08:30 by Jose Martin Copeland MD) HTN (hypertension) Functional capacity: independent ambulation Social History Social History Household Members: Family Housing: House Patient Tobacco Use Status: Current someday Tobacco user Tobacco use type: Cigarette Use of substances other than those prescribed or required for medical reasons: No Have you been hit, kicked, punched, or otherwise hurt by someone within the past year? If so, by whom?: No Do you feel safe in your current relationship?: Yes Is there a partner from a previous relationship who is making you feel unsafe now?: No Are you made to feel afraid or neglected: No Advance Directives: No Advance Directives Information Provided: Yes Do you have thoughts of harming others: None Do you have a plan to hurt others: No Plan Recently lost weight without trying: No Eating poorly because of decreased appetite: No Nutrition Risks: No Nutritional Risk Poor oral hygiene: No Meds Allergies Allergy/AdvReac Type Severity Reaction Status Date / Time No Known Allergies Allergy Verified 10/24/20 08:48 Active Medications: Current Medications Generic Name Dose Route Start Last Admin Trade Name Freq PRN Reason Stop Dose Admin Acetaminophen 650 mg 10/23/20 22:56 Acetaminophen Supp 650 Mg Supp.Rect [place] Q6H PRN Pain, Mild (Pain Scale 1-3) Docusate Sodium 100 mg 10/23/20 22:56 10/24/20 08:29 Docusate Sodium 100 Mg Capsule PO 100 mg BID MARIELLE Administration Hydromorphone HCl 0.5 mg 10/24/20 08:36 10/24/20 16:42 Hydromorphone Hcl 0.5 Mg/0.5 Ml Syringe IVPUSH 0.5 mg Q4H PRN Administration Pain, Moderate (Pain Scale 4-6 Protocol Dextrose/Sodium Chloride 1,000 mls @ 80 mls/hr 10/23/20 22:56 10/24/20 08:41 D51/2ns IVCONT 80 mls/hr .[id number] MARIELLE Administration Cefazolin Sodium/Dextrose 2 gm in 50 mls @ 100 mls/hr 10/25/20 06:00 Ancef IV 10/25/20 06:29 PREOP ONE Ondansetron HCl 4 mg 10/23/20 22:56 Ondansetron Odt 4 Mg Tab.Rapdis TRANSLINGU Q6H PRN nausea Oxycodone HCl 10 mg 10/23/20 22:56 10/24/20 02:52 Oxycodone Hcl Immed Release 5 Mg Tablet PO 10 mg Q6H PRN Administration pain Oxycodone HCl 10 mg 10/23/20 22:56 10/24/20 08:29 Oxycodone Hcl Er 10 Mg Tab.Er.12h PO 10 mg BID MARIELLE Administration Sodium Chloride 3 ml 10/24/20 00:00 10/24/20 14:18 0.9 % Sodium Chloride Flush 3 Ml Syringe IVFLUSH Not Given QSHIFT [facility] Home Medications Medication Instructions Recorded Confirmed Last Taken Type lisinopril 30 mg tablet 1 tab PO DAILY 10/23/20 10/23/20 Unknown History Physical Exam Vital Signs: Vital Signs: Last Vital Signs Temp 98.6 F 10/24/20 15:30 Pulse 87 10/24/20 15:30 Resp 19 10/24/20 15:30 BP 114/62 10/24/20 15:30 Pulse Ox 97 10/24/20 15:30 Body Mass Index 34.0 Const: General: cooperative, healthy appearing and no acute distress Resp: Effort & Inspection: normal respiratory effort and able to speak in complete sentences Cardio: Rate: regular rate Peripheral pulses: Peripheral pulses 2+ throughout GI: Palpation (GI): Soft to palpation Skin: Lesions: no lesions Rashes: no rashes Extrem: Other: Left knee superficial abrasion lateral to the patella. Patient is able dorsiflex plantar flex. He is able to all digits. Sensation is intact. Pedal pulses intact. Compartments are all soft. Results Labs Result Diagrams: 10/24/20 06:18 10/24/20 06:18 Labs: Abnormal lab results 10/23/20 10/23/20 10/24/20 Range/Units 19:53 19:56 06:18 RBC 4.52 L 4.11 L (4.60-5.80) X10*6/uL Hgb 12.9 L (14.0-18.0) g/dl Hct 40.7 L 37.2 L (42-52) % Plt Count 112 L 111 L (160-400) X10*3/uL Sodium (135-145) mmol/L Carbon Dioxide 21 L (22-29) mmol/L Fasting Glucose (60-99) mg/dL 10/24/20 Range/Units 06:18 RBC (4.60-5.80) X10*6/uL Hgb (14.0-18.0) g/dl Hct (42-52) % Plt Count (160-400) X10*3/uL Sodium 133 L (135-145) mmol/L Carbon Dioxide 21 L (22-29) mmol/L Fasting Glucose 111 H (60-99) mg/dL H & H 10/23/20 10/24/20 Range/Units 19:53 06:18 Hgb 14.2 12.9 L (14.0-18.0) g/dl Hct 40.7 L 37.2 L (42-52) % Coagulation 10/23/20 Range/Units 19:56 INR 1.1 (0.9-1.1) All other labs normal. Assessment and Plan (1) Fracture of tibial plateau: Qualifiers: Encounter type: initial encounter Fracture type: closed Laterality: left Qualified Code(s): S82.142A - Displaced bicondylar fracture of left tibia, initial encounter for closed fracture Status: Acute Mr. Valladares is a 50-year-old male with a past medical history significant for hypertension. The patient sustained a fall while trying to climb over a fence. After the fall he was unable to ambulate and had significant left lower extremity pain. He presented to the emergency department where x-rays were obtained is found to have a complex left tibial plateau fracture. He was admitted to the orthopedic service for further evaluation and treatment. I discussed the case with Dr. Mcintosh who was also available to see the patient in speak with him. We explained the extent of the injury to the patient and options available which include surgical intervention. I explained the procedure in detail along with the length of recovery and rehab course. I explained the risk, benefits and alternatives. Risk including, but not limited to infection, blood clots, bleeding, non union or malunion and nerve/tissue damage to surrounding areas. I answered all their questions and with their understanding they have consented to move forward with Operative Fixation of the left tibial plateau fracture. The patient will be T&S, med clearance obtained and NPO after midnight. Orthopedics will see the patient in the morning to evaluate edema and further surgical planning. Quality Stroke Does the patient have a stroke diagnosis?: No VTE Prior VTE?: No VTE Risk Level:: Medical - moderate - high VTE Device Contraindication: N/A - Device Ordered VTE Drug Contraindication: Treatment Not Indicated Procedures Date of Service Date of Service: 10/23/20
[2020-10-24 19:13] VITALS: BP 132/64; PULSE 86; RESP 18; TEMP 36.7; O2SAT 96
[2020-10-25] VITALS (18 sets, daily range): BP systolic 101–164; BP diastolic 59–92; PULSE 72–89; RESP 15–20; TEMP 36.2–37.7; O2SAT 93–98
[2020-10-25] MEDS: HYDROmorphone HCl 0.5 MG/0.5 ML SYRINGE IVPUSH ×4 (02:35→20:00)
[2020-10-25 06:17] LABS: Imm Gran Abs Auto 0.02 X10*3/uL (0.00-0.03); Imm Gran Pct Auto 0.3 % (0.0-0.4); Mean Corpuscular HGB Conc 34.7 g/dl (31.0-36.0); PLT CLUMP 1; Red Cell Distribution Width 12.3 % (11.0-16.0); SCAN SMEAR FLAG 1
[2020-10-25 06:19] LABS: Basophils Percent Auto 0.4 % (0-2); Eosinophils Absolute Auto 0.1 X10*3/uL (0.0-0.4); Hematocrit 33.4 % (42-52); Hemoglobin 11.6 g/dl (14.0-18.0); Lymphocytes Absolute Auto 2.3 X10*3/uL (1.2-4.9); Lymphocytes Percent Auto 32.3 % (20-40); Mean Corpuscular Hemoglobin 31.3 pg (27.0-33.0); Mean Platelet Volume 11.2 fL (9.4-12.4); Monocytes Absolute Auto 0.8 X10*3/uL (0.1-1.2); Monocytes Percent Auto 10.8 % (2-11); Neutrophils Absolute Auto 3.9 X10*3/uL (2.0-8.3); Neutrophils Percent Auto 55.2 % (45-73); Platelet Count 103 X10*3/uL (160-400); Red Blood Count 3.71 X10*6/uL (4.60-5.80)
[2020-10-25 06:22] LABS: MANUAL DIFF FLAG NO
[2020-10-25 06:38] LABS: Anion Gap 11 (12-20); Blood Urea Nitrogen 11 mg/dL (9-16); Calcium 8.7 mg/dL (8.4-10.2); Carbon Dioxide 24 mmol/L (22-29); Chloride 100 mmol/L (96-108); Creatinine Clr Calc Pharmacy 140.9; Estimated Glomerular Filt Rate > 60; Glucose Fasting 124 mg/dL (60-99); Potassium 4.3 mmol/L (3.3-5.1); Sodium 131 mmol/L (135-145)
[2020-10-25] MEDS: oxyCODONE HCl Immed Release 5 MG TABLET 10 MG PO ×2 (07:29→13:50)
[2020-10-25] MEDS: oxyCODONE HCl ER 10 MG TAB.ER.12H PO ×2 (07:29→20:00)
[2020-10-25] MEDS: Dextrose 5 % and 0.45 % NaCl 1,000 ML 80 ML IVCONT (08:33)
--- NOTE | 2020-10-25 08:34 | MHC.CM.PN ---
PATIENT IS STILL EXPERIENCING HIGH LEVELS OF PAIN. RN IN ROOM. CM TO REVISIT WITH ECONOMICS PROFESSOR AT AT BETTER TIME.
--- NOTE | 2020-10-25 10:15 | PC.NURSE ---
Skin assessment completed today. Patient has a left tibial plateau fracture, he is in a soft cast right now awaiting surgery. No other skin issues noted at this time.
--- NOTE | 2020-10-25 10:26 | HO.PM.IMPN ---
Subjective Subjective Date of Service: 10/25/20 Interval History: F/u tibia plateau fracture Review of Systems pain in the knee Physical Exam Vital Signs: Vital Signs: Last Vital Signs Temp 97.4 F 10/25/20 07:30 Pulse 74 10/25/20 07:30 Resp 18 10/25/20 07:30 BP 127/79 10/25/20 07:30 Pulse Ox 97 10/25/20 07:30 Body Mass Index 34.0 General: AO X 3, no acute distress Resp: CTA bilateral CVS: S1,S2,RRR GI: +BS, NT, no distention Skin: No rash Neuro: motor grossly intact Psych: appropriate affect left lower extremity imobilizer in place Objective Data Current Medications Generic Name Dose Route Start Last Admin Trade Name Freq PRN Reason Stop Dose Admin Acetaminophen 650 mg 10/23/20 22:56 Acetaminophen Supp 650 Mg Supp.Rect [place] Q6H PRN Pain, Mild (Pain Scale 1-3) Docusate Sodium 100 mg 10/23/20 22:56 10/25/20 07:27 Docusate Sodium 100 Mg Capsule PO Not Given BID MARIELLE Hydromorphone HCl 0.5 mg 10/24/20 08:36 10/25/20 08:33 Hydromorphone Hcl 0.5 Mg/0.5 Ml Syringe IVPUSH 0.5 mg Q4H PRN Administration Pain, Moderate (Pain Scale 4-6 Protocol Dextrose/Sodium Chloride 1,000 mls @ 80 mls/hr 10/23/20 22:56 10/25/20 08:33 D51/2ns IVCONT 80 mls/hr .[id number] MARIELLE Administration Ondansetron HCl 4 mg 10/23/20 22:56 Ondansetron Odt 4 Mg Tab.Rapdis TRANSLINGU Q6H PRN nausea Oxycodone HCl 10 mg 10/23/20 22:56 10/25/20 07:29 Oxycodone Hcl Immed Release 5 Mg Tablet PO 10 mg Q6H PRN Administration pain Oxycodone HCl 10 mg 10/23/20 22:56 10/25/20 07:29 Oxycodone Hcl Er 10 Mg Tab.Er.12h PO 10 mg BID MARIELLE Administration Sodium Chloride 3 ml 10/24/20 00:00 10/25/20 07:27 0.9 % Sodium Chloride Flush 3 Ml Syringe IVFLUSH Not Given QSHIFT [facility] Labs CBC & Chem 7: 10/25/20 05:54 10/25/20 05:55 Labs: Laboratory Results - last 24 hr 10/25/20 10/25/20 05:54 05:55 MCV 90.0 MCH 31.3 MCHC 34.7 RDW 12.3 Plt Count 103 L MPV 11.2 Immature Gran % (Auto) 0.3 Neut % (Auto) 55.2 Lymph % (Auto) 32.3 [place] % (Auto) 10.8 Eos % (Auto) 1.0 Baso % (Auto) 0.4 Lymph # (Auto) 2.3 [place] # (Auto) 0.8 Eos # (Auto) 0.1 Baso # (Auto) 0.0 Abs Immat Gran (auto) 0.02 Absolute Neuts (auto) 3.9 Absolute Nucleated RBC 0.000 Nucleated RBC % (auto) 0.0 Anion Gap 11 L Estim Creat Clear Calc 140.9 Estimated GFR > 60 Fasting Glucose 124 H Calcium 8.7 Assessment and Plan (1) HTN (hypertension): Status: Acute (2) Hyponatremia: Status: Acute Assessment and Plan: 56/m with HTN and now with traumatic left?Severely comminuted and displaced tibial plateau fracture ' Plan: Tibia plateau fracture--to be managed by Ortho. Patient has no heart disease, no long disease, no angina, no HF symptoms and therefore should be low risk for surgery. His ECG is reviewed and is normal. No further testing needed before surgery. Dilaudid for pain HTN--he takes Lisinopril 40 at home, BP is within normal, hold med Hyponatremia-131, change IVF to NS Quality Stroke Does the patient have a stroke diagnosis?: No VTE Prior VTE?: No VTE Risk Level:: Medical - moderate - high VTE Device Contraindication: N/A - Device Ordered VTE Drug Contraindication: Treatment Not Indicated
[2020-10-25] MEDS: 0.9 % Sodium Chloride 1,000 ML 100 ML IVCONT ×2 (10:55→15:30)
--- NOTE | 2020-10-25 12:52 | MHC.CM.PN ---
2ND ATTEMPT AT CASE MANAGEMENT ASSESSMENT. PATIENT HAD BREAKFAST AND IS NOW ON LIST OF POSSIBLE SURGERY LATER THIS AFTERNOON. HE IS AWARE THAT CASE MANAGEMENT WILL RETURN TOMORROW MUSIC TEACHER SERVICES NEEDED
--- NOTE | 2020-10-25 16:15 | HO.ANESPROP2 ---
[facility] Active Problems Active Problems: All Active Problems (Updated 10/25/20 @ 10:30 by Jose Martin Copeland MD) Hyponatremia (Acute) HTN (hypertension) (Acute) Fracture of tibial plateau (Acute) Past Medical History Medical History HTN (hypertension) Functional capacity: independent ambulation Surgical History History of Problems with Anesthesia: No Social History Social History Household Members: Family Housing: House Patient Tobacco Use Status: Current everyday Tobacco user Tobacco use type: Cigarette Cigarette Packs Per Day: 1 Cigarettes Per Day: 20.0 Years Smoked: 20 Smoked in Last 30 Days: Yes Use of substances other than those prescribed or required for medical reasons: Yes Currently Displaying Signs/Symptoms of Drug Intoxication Withdrawal: No Have you been hit, kicked, punched, or otherwise hurt by someone within the past year? If so, by whom?: No Do you feel safe in your current relationship?: Yes Is there a partner from a previous relationship who is making you feel unsafe now?: No Are you made to feel afraid or neglected: No Are you DNR?: No Advance Directives: No Advance Directives Information Provided: Yes Do you have thoughts of harming others: None Do you have a plan to hurt others: No Plan Recently lost weight without trying: No Eating poorly because of decreased appetite: No Nutrition Risks: No Nutritional Risk Poor oral hygiene: No Meds Allergies Allergy/AdvReac Type Severity Reaction Status Date / Time No Known Allergies Allergy Verified 10/24/20 08:48 Active Medications: Current Medications Generic Name Dose Route Start Last Admin Trade Name Freq PRN Reason Stop Dose Admin Acetaminophen 650 mg 10/23/20 22:56 Acetaminophen Supp 650 Mg Supp.Rect [place] Q6H PRN Pain, Mild (Pain Scale 1-3) Docusate Sodium 100 mg 10/23/20 22:56 10/25/20 07:27 Docusate Sodium 100 Mg Capsule PO Not Given BID MARIELLE Hydromorphone HCl 0.5 mg 10/24/20 08:36 10/25/20 12:39 Hydromorphone Hcl 0.5 Mg/0.5 Ml Syringe IVPUSH 0.5 mg Q4H PRN Administration Pain, Moderate (Pain Scale 4-6 Protocol Sodium Chloride 1,000 mls @ 100 mls/hr 10/25/20 10:45 10/25/20 15:30 Ns IVCONT 100 mls/hr .Q10H MARIELLE Administration Ondansetron HCl 4 mg 10/23/20 22:56 Ondansetron Odt 4 Mg Tab.Rapdis TRANSLINGU Q6H PRN nausea Oxycodone HCl 10 mg 10/23/20 22:56 10/25/20 13:50 Oxycodone Hcl Immed Release 5 Mg Tablet PO 10 mg Q6H PRN Administration pain Oxycodone HCl 10 mg 10/23/20 22:56 10/25/20 07:29 Oxycodone Hcl Er 10 Mg Tab.Er.12h PO 10 mg BID MARIELLE Administration Sodium Chloride 3 ml 10/24/20 00:00 10/25/20 07:27 0.9 % Sodium Chloride Flush 3 Ml Syringe IVFLUSH Not Given QSHIFT [facility] Home Medications Medication Instructions Recorded Confirmed Last Taken Type lisinopril 30 mg tablet 1 tab PO DAILY 10/23/20 10/23/20 Unknown History Exam Exam Date and Time: October 25, 2020 1615 Height,Weight and Vital Signs: Height 6 ft 1 in Weight 117.2 kg Last Vital Signs Temp 100 F 10/25/20 15:09 Pulse 81 10/25/20 15:09 Resp 16 10/25/20 15:09 BP 139/79 10/25/20 15:09 Pulse Ox 97 10/25/20 15:09 Pertinent Lab Results Pertinent Lab Results: Laboratory Tests 10/23/20 10/23/20 10/23/20 19:53 19:56 19:56 WBC 6.4 RBC 4.52 L Hgb 14.2 Hct 40.7 L MCV 90.0 MCH 31.4 MCHC 34.9 RDW 12.6 Plt Count 112 L MPV 11.5 Immature Gran % (Auto) 0.3 Neut % (Auto) 61.8 Lymph % (Auto) 28.7 [place] % (Auto) 7.8 Eos % (Auto) 0.6 Baso % (Auto) 0.8 Lymph # (Auto) 1.8 [place] # (Auto) 0.5 Eos # (Auto) 0.0 Baso # (Auto) 0.1 Abs Immat Gran (auto) 0.02 Absolute Neuts (auto) 4.0 Absolute Nucleated RBC 0.000 Nucleated RBC % (auto) 0.0 PT 12.2 INR 1.1 APTT 34.4 Sodium 135 Potassium 4.1 Chloride 102 Carbon Dioxide 21 L Anion Gap 16 BUN 13 Creatinine 0.93 Estim Creat Clear Calc 126.7 Estimated GFR > 60 Random Glucose 105 Fasting Glucose Calcium 9.1 COVID-19 ([facility]) COVID-19 Clin Com Blood Type Antibody Screen 10/23/20 10/23/20 10/24/20 20:30 23:02 06:18 WBC 6.8 RBC 4.11 L Hgb 12.9 L Hct 37.2 L MCV 90.5 MCH 31.4 MCHC 34.7 RDW 12.6 Plt Count 111 L MPV 12.2 Immature Gran % (Auto) 0.4 Neut % (Auto) 62.9 Lymph % (Auto) 26.8 [place] % (Auto) 8.3 Eos % (Auto) 1.2 Baso % (Auto) 0.4 Lymph # (Auto) 1.8 [place] # (Auto) 0.6 Eos # (Auto) 0.1 Baso # (Auto) 0.0 Abs Immat Gran (auto) 0.03 Absolute Neuts (auto) 4.3 Absolute Nucleated RBC 0.000 Nucleated RBC % (auto) 0.0 PT INR APTT Sodium Potassium Chloride Carbon Dioxide Anion Gap BUN Creatinine Estim Creat Clear Calc Estimated GFR Random Glucose Fasting Glucose Calcium COVID-19 ([facility]) Negative COVID-19 Clin Com See Note Blood Type O Positive Antibody Screen NEGATIVE 10/24/20 10/25/20 10/25/20 06:18 05:54 05:55 WBC 7.0 RBC 3.71 L Hgb 11.6 L Hct 33.4 L MCV 90.0 MCH 31.3 MCHC 34.7 RDW 12.3 Plt Count 103 L MPV 11.2 Immature Gran % (Auto) 0.3 Neut % (Auto) 55.2 Lymph % (Auto) 32.3 [place] % (Auto) 10.8 Eos % (Auto) 1.0 Baso % (Auto) 0.4 Lymph # (Auto) 2.3 [place] # (Auto) 0.8 Eos # (Auto) 0.1 Baso # (Auto) 0.0 Abs Immat Gran (auto) 0.02 Absolute Neuts (auto) 3.9 Absolute Nucleated RBC 0.000 Nucleated RBC % (auto) 0.0 PT INR APTT Sodium 133 L 131 L Potassium 4.3 4.3 Chloride 104 100 Carbon Dioxide 21 L 24 Anion Gap 12 11 L BUN 10 11 Creatinine 0.78 0.85 Estim Creat Clear Calc 153.6 140.9 Estimated GFR > 60 > 60 Random Glucose Fasting Glucose 111 H 124 H Calcium 8.8 8.7 COVID-19 ([facility]) COVID-19 Clin Com Blood Type Antibody Screen Airway Mallampati Class: II TM Dist: >3cm Neck ROM: Full Loose/Missing/Broken Teeth: No Heart: RRR Lungs: CTA Assessment and Plan Assessment Anesthesia Assessment: Anesthesia Plan Discussed and Chart Reviewed Final Anesthetic Review History of Problems with Anesthesia: No NPO: Yes ASA Class: II Final Preanesthetic Review: Meds/Allgs Chart Reviewed, Consent Obtained/Reviewed and Anes Risks/Benef Reviewed Patient Risk: Low Procedure Risk: Low Anesthetic Plan Anesthetic Plan: GA Disposition: Standard PACU
--- NOTE | 2020-10-25 17:03 | MHC.SHP ---
Pre-Procedural Eval Section A Date of Service: 10/25/20 The patient is an INPATIENT: Yes Changes since office visit: Yes Patient answered all questions; No Cold of Flu in the past 2 weeks, No New Medical Problems and No Changes in Medication The History & Physical has been completed within 30 days and I have reviewed it.: Yes Section B Chief Complaint: Left distal femur fracture Allergies: Allergies Allergy/AdvReac Type Severity Reaction Status Date / Time No Known Allergies Allergy Verified 10/24/20 08:48 Plan I have reviewed the history and physical and performed a pertinent physical examination on my patient. No changes have occurred unless specified.
--- NOTE | 2020-10-25 18:03 | P.BOP_ITS ---
Brief Operative Note Date of Service: 10/25/20 Pre-op diagnosis: left tibial plateau fracture Post-op diagnosis: same Procedure: external fixation left tibial plateau fracture Implants: nestor ex fix Surgeon: Ashok Mcintosh MD Anesthesia: GETA Was an Local Area Network Administrator used for this Procedure?: Yes Local Area Network Administrator: Gale Carnes Estimated blood loss (mL): 20 IV fluids (mL): 500 Pathology: none sent Condition: stable Disposition: PACU
[2020-10-25] MEDS: oxyCODONE HCl Immed Release 5 MG TABLET PO (18:50)
[2020-10-25] MEDS: Docusate Sodium 100 MG CAPSULE PO (20:00)
[2020-10-25] MEDS: 0.9 % Sodium Chloride Flush 3 ML SYRINGE IVFLUSH (23:01)
[2020-10-26] MEDS: 0.9 % Sodium Chloride 1,000 ML 100 ML IVCONT ×2 (03:11→12:49)
[2020-10-26 03:25] VITALS: BP 121/73; PULSE 75; RESP 18; TEMP 36.2; O2SAT 97
[2020-10-26 06:13] LABS: Mean Corpuscular Volume 89.5 fL (80-98); Monocytes Absolute Auto 0.5 X10*3/uL (0.1-1.2); PLT CLUMP 1; SCAN SMEAR FLAG 1
[2020-10-26 06:15] LABS: Basophils Percent Auto 0.4 % (0-2); Hematocrit 31.4 % (42-52); Imm Gran Abs Auto 0.02 X10*3/uL (0.00-0.03); Imm Gran Pct Auto 0.4 % (0.0-0.4); Lymphocytes Absolute Auto 0.9 X10*3/uL (1.2-4.9); Lymphocytes Percent Auto 19.5 % (20-40); Mean Corpuscular Hemoglobin 31.3 pg (27.0-33.0); Mean Platelet Volume 11.7 fL (9.4-12.4); Monocytes Percent Auto 9.7 % (2-11); Neutrophils Absolute Auto 3.3 X10*3/uL (2.0-8.3); Red Blood Count 3.51 X10*6/uL (4.60-5.80); White Blood Count 4.7 X10*3/uL (4.8-10.8)
[2020-10-26 06:20] LABS: Anion Gap 10 (12-20); Blood Urea Nitrogen 12 mg/dL (9-16); Calcium 8.8 mg/dL (8.4-10.2); Carbon Dioxide 26 mmol/L (22-29); Chloride 103 mmol/L (96-108); Creatinine Clr Calc Pharmacy 153.6; Estimated Glomerular Filt Rate > 60; Potassium 4.4 mmol/L (3.3-5.1); Sodium 135 mmol/L (135-145)
[2020-10-26 06:21] LABS: MANUAL DIFF FLAG NO; Platelet Count 99 X10*3/uL (160-400)
[2020-10-26 07:18] VITALS: BP 118/79; PULSE 85; RESP 18; TEMP 36.6; O2SAT 98
[2020-10-26 07:37] LABS: Glucose Fasting 124 mg/dL (60-99)
--- NOTE | 2020-10-26 07:59 | PM.PNORT ---
Subjective Subjective Date of Service: 10/26/20 Interval history: POD1 s/p left x-fix for tibial plateau fracture with Dr. Mcintosh. Patient is restign comfortably in bed. Pain is well managed. No overnight events. No additional complaints. Physical Exam Vital Signs: Vital Signs: Last Vital Signs Temp 97.9 F 10/26/20 07:18 Pulse 85 10/26/20 07:18 Resp 18 10/26/20 07:18 BP 118/79 10/26/20 07:18 Pulse Ox 98 10/26/20 07:18 Body Mass Index 34.0 Const: General: cooperative, healthy appearing and no acute distress Resp: Effort & Inspection: normal respiratory effort and able to speak in complete sentences Cardio: Rate: regular rate Peripheral pulses: Peripheral pulses 2+ throughout GI: Palpation (GI): Soft to palpation Skin: Lesions: no lesions Rashes: no rashes Extrem: Other: Left lower extremity no ecchymosis or redness. Bandages are intact around the ex-fix. No drainage. Patient is able to platarflex and dorsiflex and move all digits. Pedal pulse intact. Sensation intact. Procedures Date of Service Date of Service: 10/26/20 Progress Note: A&P Assessment and plan (1) Fracture of tibial plateau: Status: Acute Assessment and Plan: Continue pain mgmnt Lovenox for dvt ppx Dispo planning-Pain mgmnt, monitor for reduction of swelling. Once swelling decreases planning for operative fixation of the fracture site. Fall Risk Details Current Medications: Current Medications Generic Name Dose Route Start Last Admin Trade Name Freq PRN Reason Stop Dose Admin Acetaminophen 650 mg 10/23/20 22:56 Acetaminophen Supp 650 Mg Supp.Rect [place] Q6H PRN Pain, Mild (Pain Scale 1-3) Docusate Sodium 100 mg 10/23/20 22:56 10/25/20 20:00 Docusate Sodium 100 Mg Capsule PO 100 mg BID MARIELLE Administration Enoxaparin Sodium 40 mg 10/26/20 17:00 Enoxaparin Sodium 40 Mg/0.4 Ml Syringe SUBCUT Q24H MARIELLE Hydromorphone HCl 0.5 mg 10/24/20 08:36 10/25/20 20:00 Hydromorphone Hcl 0.5 Mg/0.5 Ml Syringe IVPUSH 0.5 mg Q4H PRN Administration Pain, Moderate (Pain Scale 4-6 Protocol Sodium Chloride 1,000 mls @ 100 mls/hr 10/25/20 10:45 10/26/20 03:11 Ns IVCONT 100 mls/hr .Q10H MARIELLE Administration Ondansetron HCl 4 mg 10/23/20 22:56 Ondansetron Odt 4 Mg Tab.Rapdis TRANSLINGU Q6H PRN nausea Oxycodone HCl 10 mg 10/23/20 22:56 10/25/20 13:50 Oxycodone Hcl Immed Release 5 Mg Tablet PO 10 mg Q6H PRN Administration pain Oxycodone HCl 10 mg 10/23/20 22:56 10/25/20 20:00 Oxycodone Hcl Er 10 Mg Tab.Er.12h PO 10 mg BID MARIELLE Administration Sodium Chloride 3 ml 10/24/20 00:00 10/25/20 23:01 0.9 % Sodium Chloride Flush 3 Ml Syringe IVFLUSH 3 ml QSHIFT MARIELLE Administration Time Spent With Patient Time: Total time spent is greater than 50% in coordination of care (as documented) at patient's floor/unit and/or counseling patient: Time with patient: less than 15 minutes Quality Stroke Does the patient have a stroke diagnosis?: No VTE Prior VTE?: No VTE Risk Level:: Medical - moderate - high VTE Device Contraindication: N/A - Device Ordered VTE Drug Contraindication: Treatment Not Indicated
[2020-10-26] MEDS: Docusate Sodium 100 MG CAPSULE PO ×2 (08:39→21:55)
[2020-10-26] MEDS: oxyCODONE HCl ER 10 MG TAB.ER.12H PO ×2 (08:39→21:55)
[2020-10-26] MEDS: HYDROmorphone HCl 0.5 MG/0.5 ML SYRINGE IVPUSH ×3 (08:42→21:55)
--- NOTE | 2020-10-26 09:30 | P.PNIM_ITS ---
Subjective Subjective Date of Service: 10/26/20 Interval History: F/u tibia plateau fracture Review of Systems pain in the left leg, knee no fever Physical Exam Vital Signs: Vital Signs: Last Vital Signs Temp 97.9 F 10/26/20 07:18 Pulse 85 10/26/20 07:18 Resp 18 10/26/20 07:18 BP 118/79 10/26/20 07:18 Pulse Ox 98 10/26/20 07:18 Body Mass Index 34.0 General: AO X 3, no acute distress Resp: CTA bilateral CVS: S1,S2,RRR GI: +BS, NT, no distention msk: rods in the left lowr extremity Neuro: motor grossly intact Psych: appropriate affect Objective Data Current Medications Generic Name Dose Route Start Last Admin Trade Name Freq PRN Reason Stop Dose Admin Acetaminophen 650 mg 10/23/20 22:56 Acetaminophen Supp 650 Mg Supp.Rect [place] Q6H PRN Pain, Mild (Pain Scale 1-3) Docusate Sodium 100 mg 10/23/20 22:56 10/26/20 08:39 Docusate Sodium 100 Mg Capsule PO 100 mg BID MARIELLE Administration Enoxaparin Sodium 40 mg 10/26/20 17:00 Enoxaparin Sodium 40 Mg/0.4 Ml Syringe SUBCUT Q24H MARIELLE Hydromorphone HCl 0.5 mg 10/24/20 08:36 10/26/20 08:42 Hydromorphone Hcl 0.5 Mg/0.5 Ml Syringe IVPUSH 0.5 mg Q4H PRN Administration Pain, Moderate (Pain Scale 4-6 Protocol Sodium Chloride 1,000 mls @ 100 mls/hr 10/25/20 10:45 10/26/20 03:11 Ns IVCONT 100 mls/hr .Q10H MARIELLE Administration Ondansetron HCl 4 mg 10/23/20 22:56 Ondansetron Odt 4 Mg Tab.Rapdis TRANSLINGU Q6H PRN nausea Oxycodone HCl 10 mg 10/23/20 22:56 10/25/20 13:50 Oxycodone Hcl Immed Release 5 Mg Tablet PO 10 mg Q6H PRN Administration pain Oxycodone HCl 10 mg 10/23/20 22:56 10/26/20 08:39 Oxycodone Hcl Er 10 Mg Tab.Er.12h PO 10 mg BID MARIELLE Administration Sodium Chloride 3 ml 10/24/20 00:00 10/26/20 08:39 0.9 % Sodium Chloride Flush 3 Ml Syringe IVFLUSH Not Given QSHIFT [facility] Labs CBC & Chem 7: 10/26/20 05:42 10/26/20 05:42 Labs: Laboratory Results - last 24 hr 10/26/20 10/26/20 05:42 05:42 MCV 89.5 MCH 31.3 MCHC 35.0 RDW 12.0 Plt Count 99 L MPV 11.7 Immature Gran % (Auto) 0.4 Neut % (Auto) 70.0 Lymph % (Auto) 19.5 L [place] % (Auto) 9.7 Eos % (Auto) 0.0 Baso % (Auto) 0.4 Lymph # (Auto) 0.9 L [place] # (Auto) 0.5 Eos # (Auto) 0.0 Baso # (Auto) 0.0 Abs Immat Gran (auto) 0.02 Absolute Neuts (auto) 3.3 Absolute Nucleated RBC 0.000 Nucleated RBC % (auto) 0.0 Anion Gap 10 L Estim Creat Clear Calc 153.6 Estimated GFR > 60 Random Glucose TNP Fasting Glucose 124 H Calcium 8.8 Assessment and Plan (1) HTN (hypertension): Status: Acute (2) Hyponatremia: Status: Acute Assessment and Plan: 56/m with HTN and now with traumatic left?Severely comminuted and displaced tibial plateau fracture ' Plan: Tibia plateau fracture--s/p operative repair with hardwares, continue pain management HTN--he takes Lisinopril 40 at home, BP is within normal, hold meds Hyponatremia-resolved. Lovenox for DVT prophylaxis [place] off, will follow PRN Quality Stroke Does the patient have a stroke diagnosis?: No VTE Prior VTE?: No VTE Risk Level:: Medical - moderate - high VTE Device Contraindication: N/A - Device Ordered VTE Drug Contraindication: Treatment Not Indicated
[2020-10-26] MEDS: oxyCODONE HCl Immed Release 5 MG TABLET 10 MG PO (10:38)
--- NOTE | 2020-10-26 14:45 | HO.POSTANES ---
Post Anesthesia Evaluation Post Anesthesia Evaluation Vital Signs: Vital Signs Temp Pulse Resp BP Pulse Ox 10/26/20 07:18 97.9 F 85 18 118/79 98 10/26/20 03:25 97.2 F 75 18 121/73 97 Anesthesia: General Mental Status: Awake Pain Control: Satisfactory Nausea/Vomiting: None Hydration: Adequate Anesthesia-Related Issues: No Anes. Related Issues
[2020-10-26 15:27] VITALS: BP 129/70; PULSE 81; RESP 20; TEMP 37.6; O2SAT 98
[2020-10-26 16:40] VITALS: O2SAT 98
[2020-10-26] MEDS: 0.9 % Sodium Chloride Flush 3 ML SYRINGE IVFLUSH (17:13)
[2020-10-26] MEDS: Enoxaparin Sodium 40 MG/0.4 ML SYRINGE SUBCUT (17:19)
[2020-10-26 19:32] VITALS: BP 131/72; PULSE 72; RESP 20; TEMP 36.2; O2SAT 100
[2020-10-26 23:11] VITALS: BP 97/54; PULSE 70; RESP 15; TEMP 36.1; O2SAT 99
[2020-10-27] VITALS (7 sets, daily range): BP systolic 115–129; BP diastolic 53–73; PULSE 57–81; RESP 16–20; TEMP 36.1–36.5; O2SAT 97–100
[2020-10-27 06:31] LABS: MANUAL DIFF FLAG NO
[2020-10-27 06:40] LABS: Basophils Percent Auto 0.3 % (0-2); Eosinophils Percent Auto 0.3 % (0-4); Hematocrit 29.5 % (42-52); Hemoglobin 10.2 g/dl (14.0-18.0); Imm Gran Abs Auto 0.04 X10*3/uL (0.00-0.03); Imm Gran Pct Auto 0.5 % (0.0-0.4); Lymphocytes Absolute Auto 2.1 X10*3/uL (1.2-4.9); Lymphocytes Percent Auto 28.6 % (20-40); Mean Corpuscular HGB Conc 34.6 g/dl (31.0-36.0); Mean Corpuscular Hemoglobin 31.4 pg (27.0-33.0); Mean Corpuscular Volume 90.8 fL (80-98); Mean Platelet Volume 12.1 fL (9.4-12.4); Monocytes Absolute Auto 0.7 X10*3/uL (0.1-1.2); Monocytes Percent Auto 9.2 % (2-11); Neutrophils Absolute Auto 4.5 X10*3/uL (2.0-8.3); Neutrophils Percent Auto 61.1 % (45-73); Platelet Count 115 X10*3/uL (160-400); Red Blood Count 3.25 X10*6/uL (4.60-5.80); Red Cell Distribution Width 12.2 % (11.0-16.0); White Blood Count 7.3 X10*3/uL (4.8-10.8)
[2020-10-27 07:08] LABS: Anion Gap 14 (12-20); Blood Urea Nitrogen 18 mg/dL (9-16); Calcium 8.8 mg/dL (8.4-10.2); Carbon Dioxide 28 mmol/L (22-29); Chloride 102 mmol/L (96-108); Creatinine Clr Calc Pharmacy 155.6; Estimated Glomerular Filt Rate > 60; Glucose Fasting 111 mg/dL (60-99); Potassium 4.4 mmol/L (3.3-5.1); Sodium 140 mmol/L (135-145)
--- NOTE | 2020-10-27 07:18 | PM.PNORT ---
Subjective Subjective Date of Service: 10/27/20 Interval history: POD2 s/p left tibial plateau ex-fix. Patient is resting comfortably in bed. Pain is well managed. No overnight events. No additional complaints. Physical Exam Vital Signs: Vital Signs: Last Vital Signs Temp 97.0 F 10/27/20 03:06 Pulse 63 10/27/20 03:06 Resp 16 10/27/20 03:06 BP 115/73 10/27/20 03:06 Pulse Ox 100 10/27/20 03:06 Body Mass Index 34.0 Const: General: cooperative, healthy appearing and no acute distress Resp: Effort & Inspection: normal respiratory effort and able to speak in complete sentences Cardio: Rate: regular rate Peripheral pulses: Peripheral pulses 2+ throughout GI: Palpation (GI): Soft to palpation Skin: Lesions: no lesions Rashes: no rashes Extrem: Other: ?Left lower extremity no ecchymosis or redness. Bandages are intact around the ex-fix. No drainage. Patient is able to platarflex and dorsiflex and move all digits. Pedal pulse intact. Sensation intact. Procedures Date of Service Date of Service: 10/27/20 Progress Note: A&P Assessment and plan (1) Fracture of tibial plateau: Status: Acute Assessment and Plan: Continue pain mgmnt Lovenox for dvt ppx Dispo planning-Pain mgmnt, monitor for reduction of swelling. Once swelling decreases planning for operative fixation of the fracture site. Fall Risk Details Current Medications: Current Medications Generic Name Dose Route Start Last Admin Trade Name Freq PRN Reason Stop Dose Admin Acetaminophen 650 mg 10/23/20 22:56 Acetaminophen Supp 650 Mg Supp.Rect [place] Q6H PRN Pain, Mild (Pain Scale 1-3) Docusate Sodium 100 mg 10/23/20 22:56 10/26/20 21:55 Docusate Sodium 100 Mg Capsule PO 100 mg BID MARIELLE Administration Enoxaparin Sodium 40 mg 10/26/20 17:00 10/26/20 17:19 Enoxaparin Sodium 40 Mg/0.4 Ml Syringe SUBCUT 40 mg Q24H MARIELLE Administration Hydromorphone HCl 0.5 mg 10/24/20 08:36 10/26/20 21:55 Hydromorphone Hcl 0.5 Mg/0.5 Ml Syringe IVPUSH 0.5 mg Q4H PRN Administration Pain, Moderate (Pain Scale 4-6 Protocol Ondansetron HCl 4 mg 10/23/20 22:56 Ondansetron Odt 4 Mg Tab.Rapdis TRANSLINGU Q6H PRN nausea Oxycodone HCl 10 mg 10/23/20 22:56 10/26/20 10:38 Oxycodone Hcl Immed Release 5 Mg Tablet PO 10 mg Q6H PRN Administration pain Oxycodone HCl 10 mg 10/23/20 22:56 10/26/20 21:55 Oxycodone Hcl Er 10 Mg Tab.Er.12h PO 10 mg BID MARIELLE Administration Sodium Chloride 3 ml 10/24/20 00:00 10/27/20 04:33 0.9 % Sodium Chloride Flush 3 Ml Syringe IVFLUSH Not Given QSHIFT MARIELLE Time Spent With Patient Time: Total time spent is greater than 50% in coordination of care (as documented) at patient's floor/unit and/or counseling patient: Time with patient: less than 15 minutes Quality Stroke Does the patient have a stroke diagnosis?: No VTE Prior VTE?: No VTE Risk Level:: Medical - moderate - high VTE Device Contraindication: N/A - Device Ordered VTE Drug Contraindication: Treatment Not Indicated
[2020-10-27] MEDS: oxyCODONE HCl ER 10 MG TAB.ER.12H PO ×2 (08:29→20:12)
[2020-10-27] MEDS: Docusate Sodium 100 MG CAPSULE PO ×2 (08:29→20:12)
[2020-10-27] MEDS: oxyCODONE HCl Immed Release 5 MG TABLET 10 MG PO ×2 (08:48→21:27)
[2020-10-27] MEDS: HYDROmorphone HCl 0.5 MG/0.5 ML SYRINGE IVPUSH ×2 (11:39→15:52)
--- NOTE | 2020-10-27 13:47 | MHC.CM.PN ---
PATIENT LIVES WITH HIS SISTER. HE IS FULLY INDEPENDENT WITH ALL ADLS. NO DME, VNA, OR OUTSIDE SERVICES. HE DOES NOT HAVE A PCP YET, BUT IS IN THE PROCESS OF SECURING A PRIMARY VISIT, HE JUST SECURED HIS INSURANCE BENEFITS. HE IS HOPING FOR OUTPATIENT REHAB SERVICES, IF ANY ARE RECOMMENDED. HE ALSO PREFERS TO SECURE THESE SERVICES IN [place] IF POSSIBLE CASE MANAGEMENT FOLLOWING FOR PLAN
[2020-10-27] MEDS: Enoxaparin Sodium 40 MG/0.4 ML SYRINGE SUBCUT (15:55)
[2020-10-28] VITALS (9 sets, daily range): BP systolic 112–160; BP diastolic 62–88; PULSE 68–92; RESP 15–20; TEMP 36.5–37.3; O2SAT 95–100
[2020-10-28] MEDS: HYDROmorphone HCl 0.5 MG/0.5 ML SYRINGE IVPUSH (01:00)
[2020-10-28] MEDS: 0.9 % Sodium Chloride Flush 3 ML SYRINGE IVFLUSH ×4 (01:02→20:58)
[2020-10-28 06:24] LABS: Basophils Percent Auto 0.4 % (0-2); Hemoglobin 10.7 g/dl (14.0-18.0); PLT CLUMP 1; Red Cell Distribution Width 12.5 % (11.0-16.0); SCAN SMEAR FLAG 1
[2020-10-28 06:25] LABS: Eosinophils Absolute Auto 0.1 X10*3/uL (0.0-0.4); Eosinophils Percent Auto 1.2 % (0-4); Hematocrit 31.4 % (42-52); Imm Gran Abs Auto 0.05 X10*3/uL (0.00-0.03); Imm Gran Pct Auto 0.6 % (0.0-0.4); Mean Corpuscular HGB Conc 34.1 g/dl (31.0-36.0); Mean Corpuscular Hemoglobin 31.2 pg (27.0-33.0); Mean Corpuscular Volume 91.5 fL (80-98); Mean Platelet Volume 11.1 fL (9.4-12.4); Monocytes Absolute Auto 0.7 X10*3/uL (0.1-1.2); Monocytes Percent Auto 8.9 % (2-11); Neutrophils Percent Auto 50.9 % (45-73); Platelet Count 137 X10*3/uL (160-400); Red Blood Count 3.43 X10*6/uL (4.60-5.80); White Blood Count 7.8 X10*3/uL (4.8-10.8)
[2020-10-28 06:33] LABS: MANUAL DIFF FLAG NO
[2020-10-28 06:50] LABS: Anion Gap 10 (12-20); Blood Urea Nitrogen 21 mg/dL (9-16); Carbon Dioxide 29 mmol/L (22-29); Chloride 106 mmol/L (96-108); Creatinine Clr Calc Pharmacy 142.6; Estimated Glomerular Filt Rate > 60; Glucose Fasting 88 mg/dL (60-99); Sodium 141 mmol/L (135-145)
[2020-10-28] MEDS: Docusate Sodium 100 MG CAPSULE PO ×2 (07:57→20:57)
[2020-10-28] MEDS: HYDROmorphone HCl 2 MG/ML VIAL 0.5 MG IVPUSH ×4 (07:58→20:57)
[2020-10-28] MEDS: oxyCODONE HCl ER 10 MG TAB.ER.12H PO ×2 (07:58→20:57)
--- NOTE | 2020-10-28 08:14 | PM.PNORT ---
Subjective Subjective Date of Service: 10/28/20 Interval history: POD3 s/p left tibial plateau fracture ex-fix. Patient is resting comfrtably in bed. Pain is managed. No overnight events. No additional complaints. Physical Exam Vital Signs: Vital Signs: Last Vital Signs Temp 98 F 10/28/20 07:10 Pulse 68 10/28/20 07:10 Resp 20 10/28/20 07:58 BP 131/63 10/28/20 07:10 Pulse Ox 100 10/28/20 07:10 Body Mass Index 34.0 Const: General: cooperative, healthy appearing and no acute distress Resp: Effort & Inspection: normal respiratory effort and able to speak in complete sentences Cardio: Rate: regular rate Peripheral pulses: Peripheral pulses 2+ throughout GI: Palpation (GI): Soft to palpation Skin: Lesions: no lesions Rashes: no rashes Extrem: Other: Left lower extremity no ecchymosis or redness. Bandages are intact around the ex-fix. No drainage. Patient is able to platarflex and dorsiflex and move all digits. Pedal pulse intact. Sensation intact. Procedures Date of Service Date of Service: 10/28/20 Progress Note: A&P Assessment and plan (1) Fracture of tibial plateau: Status: Acute Assessment and Plan: Continue pain mgmnt Lovenox for dvt ppx Dispo planning-Pain mgmnt, monitor for reduction of swelling. Once swelling decreases planning for operative fixation of the fracture site. Fall Risk Details Current Medications: Current Medications Generic Name Dose Route Start Last Admin Trade Name Freq PRN Reason Stop Dose Admin Acetaminophen 650 mg 10/23/20 22:56 Acetaminophen Supp 650 Mg Supp.Rect [place] Q6H PRN Pain, Mild (Pain Scale 1-3) Docusate Sodium 100 mg 10/23/20 22:56 10/28/20 07:57 Docusate Sodium 100 Mg Capsule PO 100 mg BID MARIELLE Administration Enoxaparin Sodium 40 mg 10/26/20 17:00 10/27/20 15:55 Enoxaparin Sodium 40 Mg/0.4 Ml Syringe SUBCUT 40 mg Q24H MARIELLE Administration Hydromorphone HCl 0.5 mg 10/28/20 07:27 10/28/20 07:58 Hydromorphone Hcl 2 Mg/Ml Vial IVPUSH 0.5 mg Q4H PRN Administration Pain, Moderate (Pain Scale 4-6 Protocol Ondansetron HCl 4 mg 10/23/20 22:56 Ondansetron Odt 4 Mg Tab.Rapdis TRANSLINGU Q6H PRN nausea Oxycodone HCl 10 mg 10/23/20 22:56 10/27/20 21:27 Oxycodone Hcl Immed Release 5 Mg Tablet PO 10 mg Q6H PRN Administration pain Oxycodone HCl 10 mg 10/23/20 22:56 10/28/20 07:58 Oxycodone Hcl Er 10 Mg Tab.Er.12h PO 10 mg BID MARIELLE Administration Sodium Chloride 3 ml 10/24/20 00:00 10/28/20 07:58 0.9 % Sodium Chloride Flush 3 Ml Syringe IVFLUSH 3 ml QSHIFT MARIELLE Administration Time Spent With Patient Time: Total time spent is greater than 50% in coordination of care (as documented) at patient's floor/unit and/or counseling patient: Time with patient: less than 15 minutes Quality Stroke Does the patient have a stroke diagnosis?: No VTE Prior VTE?: No VTE Risk Level:: Medical - moderate - high VTE Device Contraindication: N/A - Device Ordered VTE Drug Contraindication: Treatment Not Indicated
[2020-10-28] MEDS: Enoxaparin Sodium 40 MG/0.4 ML SYRINGE SUBCUT (16:22)
[2020-10-29] VITALS (8 sets, daily range): BP systolic 123–156; BP diastolic 70–84; PULSE 82–89; RESP 17–19; TEMP 36.6–37.4; O2SAT 93–98
[2020-10-29] MEDS: HYDROmorphone HCl 2 MG/ML VIAL 0.5 MG IVPUSH ×5 (06:41→23:13)
[2020-10-29] MEDS: oxyCODONE HCl Immed Release 5 MG TABLET 10 MG PO (08:11)
[2020-10-29] MEDS: Docusate Sodium 100 MG CAPSULE PO ×2 (08:12→20:15)
[2020-10-29] MEDS: 0.9 % Sodium Chloride Flush 3 ML SYRINGE IVFLUSH ×3 (08:12→20:15)
--- NOTE | 2020-10-29 08:17 | PM.PNORT ---
Subjective Subjective Date of Service: 10/29/20 Interval history: POD4 s/p left lower extremity ex-fix for tibial plateau fracture. Patient is resting comfortably in bed. No overnight events. Pain is well managed. No additional complaints. Physical Exam Vital Signs: Vital Signs: Last Vital Signs Temp 98.1 F 10/29/20 07:56 Pulse 85 10/29/20 07:56 Resp 18 10/29/20 07:56 BP 141/79 H 10/29/20 07:56 Pulse Ox 98 10/29/20 07:56 Body Mass Index 34.0 Const: General: cooperative, healthy appearing and no acute distress Resp: Effort & Inspection: normal respiratory effort and able to speak in complete sentences Cardio: Rate: regular rate Peripheral pulses: Peripheral pulses 2+ throughout GI: Palpation (GI): Soft to palpation Skin: Lesions: no lesions Rashes: no rashes Extrem: Other: ?Left lower extremity no ecchymosis or redness. Moderate edema. Bandages are intact around the ex-fix. No drainage. Patient is able to platarflex and dorsiflex and move all digits. Pedal pulse intact. Sensation intact. Procedures Date of Service Date of Service: 10/29/20 Progress Note: A&P Assessment and plan (1) Fracture of tibial plateau: Status: Acute Assessment and Plan: Continue pain mgmnt Lovenox for dvt ppx Dispo planning-Pain mgmnt, monitor for reduction of swelling. Once swelling decreases planning for operative fixation of the fracture site. Fall Risk Details Current Medications: Current Medications Generic Name Dose Route Start Last Admin Trade Name Freq PRN Reason Stop Dose Admin Acetaminophen 650 mg 10/23/20 22:56 Acetaminophen Supp 650 Mg Supp.Rect IN Q6H PRN Pain, Mild (Pain Scale 1-3) Docusate Sodium 100 mg 10/23/20 22:56 10/29/20 08:12 Docusate Sodium 100 Mg Capsule PO 100 mg BID MARIELLE Administration Enoxaparin Sodium 40 mg 10/26/20 17:00 10/28/20 16:22 Enoxaparin Sodium 40 Mg/0.4 Ml Syringe SUBCUT 40 mg Q24H MARIELLE Administration Hydromorphone HCl 0.5 mg 10/28/20 07:27 10/29/20 06:41 Hydromorphone Hcl 2 Mg/Ml Vial IVPUSH 0.5 mg Q4H PRN Administration Pain, Moderate (Pain Scale 4-6 Protocol Ondansetron HCl 4 mg 10/23/20 22:56 Ondansetron Odt 4 Mg Tab.Rapdis TRANSLINGU Q6H PRN nausea Oxycodone HCl 10 mg 10/29/20 07:58 10/29/20 08:11 Oxycodone Hcl Immed Release 5 Mg Tablet PO 10 mg Q6H PRN Administration pain Sodium Chloride 3 ml 10/24/20 00:00 10/29/20 08:12 0.9 % Sodium Chloride Flush 3 Ml Syringe IVFLUSH 3 ml QSHIFT MARIELLE Administration Time Spent With Patient Time: Total time spent is greater than 50% in coordination of care (as documented) at patient's floor/unit and/or counseling patient: Time with patient: less than 15 minutes Quality Stroke Does the patient have a stroke diagnosis?: No VTE Prior VTE?: No VTE Risk Level:: Medical - moderate - high VTE Device Contraindication: N/A - Device Ordered VTE Drug Contraindication: Treatment Not Indicated
--- NOTE | 2020-10-29 11:57 | MHC.CM.PN ---
CM MET WITH PT ALONG WITH [employer]. PT REPORTS HE PLANS TO GO HOME AT [place] AND WOULD LIKE TO BE SET UP WITH OUTPATIENT PT SERVICES IN [place]. PT REPORTS HE FEELS HE WILL BE ABLE TO MANAGE AT HOME HIS SISTER IS THERE TO ASSIST. HE ALSO DENIES HAVING CONCERNS REGARDING TRANSPORTING BACK AND FORTH TO OP PT. PT WILL DC HOME WITH REFERRAL TO OP PT FAMILY TO TRANSPORT
[2020-10-29] MEDS: Enoxaparin Sodium 40 MG/0.4 ML SYRINGE SUBCUT (15:18)
[2020-10-30 03:42] VITALS: BP 133/82; PULSE 84; RESP 18; TEMP 36.4; O2SAT 97
[2020-10-30] MEDS: HYDROmorphone HCl 2 MG/ML VIAL 0.5 MG IVPUSH ×5 (04:05→21:22)
[2020-10-30 06:45] LABS: MANUAL DIFF FLAG NO
[2020-10-30] MEDS: oxyCODONE HCl Immed Release 5 MG TABLET 10 MG PO (06:46)
[2020-10-30 06:51] LABS: Basophils Percent Auto 0.4 % (0-2); Eosinophils Absolute Auto 0.1 X10*3/uL (0.0-0.4); Eosinophils Percent Auto 1.1 % (0-4); Hematocrit 33.4 % (42-52); Hemoglobin 11.8 g/dl (14.0-18.0); Imm Gran Abs Auto 0.05 X10*3/uL (0.00-0.03); Imm Gran Pct Auto 0.5 % (0.0-0.4); Lymphocytes Absolute Auto 2.8 X10*3/uL (1.2-4.9); Lymphocytes Percent Auto 29.5 % (20-40); Mean Corpuscular HGB Conc 35.3 g/dl (31.0-36.0); Mean Corpuscular Hemoglobin 31.2 pg (27.0-33.0); Mean Corpuscular Volume 88.4 fL (80-98); Mean Platelet Volume 10.6 fL (9.4-12.4); Monocytes Percent Auto 10.6 % (2-11); Neutrophils Absolute Auto 5.5 X10*3/uL (2.0-8.3); Neutrophils Percent Auto 57.9 % (45-73); Platelet Count 171 X10*3/uL (160-400); Red Blood Count 3.78 X10*6/uL (4.60-5.80); Red Cell Distribution Width 12.2 % (11.0-16.0); White Blood Count 9.5 X10*3/uL (4.8-10.8)
[2020-10-30 07:22] LABS: Anion Gap 14 (12-20); Blood Urea Nitrogen 22 mg/dL (9-16); Calcium 9.8 mg/dL (8.4-10.2); Carbon Dioxide 25 mmol/L (22-29); Chloride 99 mmol/L (96-108); Creatinine Clr Calc Pharmacy 142.6; Estimated Glomerular Filt Rate > 60; Glucose Random 105 mg/dL (60-115); Potassium 4.5 mmol/L (3.3-5.1); Sodium 133 mmol/L (135-145)
[2020-10-30 07:54] VITALS: BP 137/85; PULSE 100; RESP 18; TEMP 36.7; O2SAT 94
[2020-10-30] MEDS: 0.9 % Sodium Chloride Flush 3 ML SYRINGE IVFLUSH (08:03)
[2020-10-30] MEDS: Docusate Sodium 100 MG CAPSULE PO ×2 (08:03→21:23)
--- NOTE | 2020-10-30 10:53 | P.PNOP_ITS ---
Subjective Subjective Date of Service: 10/30/20 Interval history: POD5 s/p left lower extremity ex-fix for tibial plateau fracture. Patient is resting comfortably in bed. No overnight events. Pain is well managed. No additional complaints Physical Exam Vital Signs: Vital Signs: Last Vital Signs Temp 98.1 F 10/30/20 07:54 Pulse 100 10/30/20 07:54 Resp 18 10/30/20 07:54 BP 137/85 10/30/20 07:54 Pulse Ox 94 10/30/20 07:54 Body Mass Index 34.0 Const: General: cooperative, healthy appearing and no acute distress Resp: Effort & Inspection: normal respiratory effort and able to speak in complete sentences Cardio: Rate: regular rate Peripheral pulses: Peripheral pulses 2+ throughout GI: Palpation (GI): Soft to palpation Skin: General skin exam: no rashes or lesions noted Extrem: Other: ex fix in tact at left lower extremity. Pinn sites well paded and clean. there is swelling throughout the leg, pulses present, sensation intact. Procedures Date of Service Date of Service: 10/30/20 Progress Note: A&P Assessment and plan (1) Fracture of tibial plateau: Status: Acute Assessment and Plan: * Continue pain mgmnt * continue lovenox for dvt ppx * PLan for OR for 2nd procedure caitlyn-ORIF left tibia Fall Risk Details Current Medications: Current Medications Generic Name Dose Route Start Last Admin Trade Name Freq PRN Reason Stop Dose Admin Acetaminophen 650 mg 10/23/20 22:56 Acetaminophen Supp 650 Mg Supp.Rect NE Q6H PRN Pain, Mild (Pain Scale 1-3) Docusate Sodium 100 mg 10/23/20 22:56 10/30/20 08:03 Docusate Sodium 100 Mg Capsule PO 100 mg BID MARIELLE Administration Enoxaparin Sodium 40 mg 10/26/20 17:00 10/29/20 15:18 Enoxaparin Sodium 40 Mg/0.4 Ml Syringe SUBCUT 40 mg Q24H MARIELLE Administration Hydromorphone HCl 0.5 mg 10/28/20 07:27 10/30/20 09:34 Hydromorphone Hcl 2 Mg/Ml Vial IVPUSH 0.5 mg Q4H PRN Administration Pain, Moderate (Pain Scale 4-6 Protocol Cefazolin Sodium/Dextrose 2 gm in 50 mls @ 100 mls/hr 11/02/20 09:49 Ancef IV 11/02/20 10:18 PREOP ONE Ondansetron HCl 4 mg 10/23/20 22:56 Ondansetron Odt 4 Mg Tab.Rapdis TRANSLINGU Q6H PRN nausea Oxycodone HCl 10 mg 10/29/20 07:58 10/30/20 06:46 Oxycodone Hcl Immed Release 5 Mg Tablet PO 10 mg Q6H PRN Administration pain Sodium Chloride 3 ml 10/24/20 00:00 10/30/20 08:03 0.9 % Sodium Chloride Flush 3 Ml Syringe IVFLUSH 3 ml QSHIFT MARIELLE Administration Time Spent With Patient Time: Total time spent is greater than 50% in coordination of care (as documented) at patient's floor/unit and/or counseling patient: Time with patient: less than 15 minutes Quality Stroke Does the patient have a stroke diagnosis?: No VTE Prior VTE?: No VTE Risk Level:: Medical - moderate - high VTE Device Contraindication: N/A - Device Ordered VTE Drug Contraindication: Treatment Not Indicated
[2020-10-30 12:00] VITALS: BP 109/80; PULSE 89; RESP 18; TEMP 36.6; O2SAT 94
[2020-10-30 15:20] VITALS: BP 120/82; PULSE 92; RESP 19; TEMP 37.3; O2SAT 97
[2020-10-30] MEDS: Enoxaparin Sodium 40 MG/0.4 ML SYRINGE SUBCUT (17:18)
[2020-10-30 19:13] VITALS: BP 126/77; PULSE 93; RESP 19; TEMP 37; O2SAT 97
[2020-10-30 23:50] VITALS: BP 137/82; PULSE 87; RESP 18; TEMP 36.9; O2SAT 96
[2020-10-31] MEDS: 0.9 % Sodium Chloride Flush 3 ML SYRINGE IVFLUSH ×3 (00:09→15:47)
[2020-10-31] MEDS: oxyCODONE HCl Immed Release 5 MG TABLET 10 MG PO ×2 (00:32→18:37)
[2020-10-31 03:21] VITALS: BP 136/82; PULSE 79; RESP 18; TEMP 36.8; O2SAT 98
[2020-10-31 06:39] LABS: MANUAL DIFF FLAG NO
[2020-10-31 06:46] LABS: Basophils Percent Auto 0.4 % (0-2); Eosinophils Absolute Auto 0.1 X10*3/uL (0.0-0.4); Eosinophils Percent Auto 1.4 % (0-4); Hematocrit 32.2 % (42-52); Hemoglobin 11.4 g/dl (14.0-18.0); Imm Gran Abs Auto 0.06 X10*3/uL (0.00-0.03); Imm Gran Pct Auto 0.6 % (0.0-0.4); Lymphocytes Absolute Auto 2.8 X10*3/uL (1.2-4.9); Lymphocytes Percent Auto 29.6 % (20-40); Mean Corpuscular HGB Conc 35.4 g/dl (31.0-36.0); Mean Corpuscular Hemoglobin 31.8 pg (27.0-33.0); Mean Corpuscular Volume 89.9 fL (80-98); Mean Platelet Volume 10.7 fL (9.4-12.4); Monocytes Percent Auto 10.3 % (2-11); Neutrophils Absolute Auto 5.5 X10*3/uL (2.0-8.3); Neutrophils Percent Auto 57.7 % (45-73); Platelet Count 180 X10*3/uL (160-400); Red Blood Count 3.58 X10*6/uL (4.60-5.80); Red Cell Distribution Width 12.2 % (11.0-16.0); White Blood Count 9.6 X10*3/uL (4.8-10.8)
[2020-10-31 07:12] LABS: Anion Gap 14 (12-20); Blood Urea Nitrogen 26 mg/dL (9-16); Calcium 9.4 mg/dL (8.4-10.2); Carbon Dioxide 26 mmol/L (22-29); Chloride 98 mmol/L (96-108); Creatinine Clr Calc Pharmacy 134.6; Estimated Glomerular Filt Rate > 60; Glucose Random 99 mg/dL (60-115); Potassium 4.3 mmol/L (3.3-5.1); Sodium 134 mmol/L (135-145)
[2020-10-31 07:41] VITALS: BP 126/79; PULSE 89; RESP 18; TEMP 37.2; O2SAT 97
[2020-10-31] MEDS: HYDROmorphone HCl 2 MG/ML VIAL 0.5 MG IVPUSH ×4 (07:41→19:26)
[2020-10-31] MEDS: Docusate Sodium 100 MG CAPSULE PO ×2 (07:42→19:28)
[2020-10-31 11:32] VITALS: BP 127/83; PULSE 94; RESP 18; TEMP 37.1; O2SAT 97
[2020-10-31 15:18] VITALS: BP 135/81; PULSE 82; RESP 18; TEMP 36.5; O2SAT 99
--- NOTE | 2020-10-31 15:21 | P.PNOP_ITS ---
Subjective Subjective Date of Service: 10/31/20 Interval history: POD 6 s/p left lower extremity ex-fix for tibial plateau fracture. Patient is resting comfortably in bed. No overnight events. ?Pain is well managed. No additional complaints Physical Exam Vital Signs: Vital Signs: Last Vital Signs Temp 97.7 F 10/31/20 15:18 Pulse 82 10/31/20 15:18 Resp 18 10/31/20 15:18 BP 135/81 10/31/20 15:18 Pulse Ox 99 10/31/20 15:18 Body Mass Index 34.0 Const: General: cooperative, healthy appearing and no acute distress Resp: Effort & Inspection: normal respiratory effort and able to speak in complete sentences Cardio: Rate: regular rate Peripheral pulses: Peripheral pulses 2+ throughout GI: Palpation (GI): Soft to palpation Skin: General skin exam: no rashes or lesions noted Extrem: Other: ex fix in tact at left lower extremity. Pinn sites well paded and clean. there is swelling throughout the leg, pulses present, sensation intact. Procedures Date of Service Date of Service: 10/31/20 Progress Note: A&P Assessment and plan (1) Fracture of tibial plateau: Status: Acute Assessment and Plan: * Continue pain mgmnt * continue lovenox for dvt ppx * PLan for OR for 2nd procedure sunday-ORIF left tibia Fall Risk Details Current Medications: Current Medications Generic Name Dose Route Start Last Admin Trade Name Freq PRN Reason Stop Dose Admin Acetaminophen 650 mg 10/23/20 22:56 Acetaminophen Supp 650 Mg Supp.Rect [place] Q6H PRN Pain, Mild (Pain Scale 1-3) Docusate Sodium 100 mg 10/23/20 22:56 10/31/20 07:42 Docusate Sodium 100 Mg Capsule PO 100 mg BID MARIELLE Administration Enoxaparin Sodium 40 mg 10/26/20 17:00 10/30/20 17:18 Enoxaparin Sodium 40 Mg/0.4 Ml Syringe SUBCUT 40 mg Q24H MARIELLE Administration Hydromorphone HCl 0.5 mg 10/28/20 07:27 10/31/20 11:53 Hydromorphone Hcl 2 Mg/Ml Vial IVPUSH 0.5 mg Q4H PRN Administration Pain, Moderate (Pain Scale 4-6 Protocol Cefazolin Sodium/Dextrose 2 gm in 50 mls @ 100 mls/hr 11/02/20 09:49 Ancef IV 11/02/20 10:18 PREOP ONE Ondansetron HCl 4 mg 10/23/20 22:56 Ondansetron Odt 4 Mg Tab.Rapdis TRANSLINGU Q6H PRN nausea Oxycodone HCl 10 mg 10/29/20 07:58 10/31/20 00:32 Oxycodone Hcl Immed Release 5 Mg Tablet PO 10 mg Q6H PRN Administration pain Sodium Chloride 3 ml 10/24/20 00:00 10/31/20 07:42 0.9 % Sodium Chloride Flush 3 Ml Syringe IVFLUSH 3 ml QSHIFT MARIELLE Administration Time Spent With Patient Time: Total time spent is greater than 50% in coordination of care (as documented) at patient's floor/unit and/or counseling patient: Time with patient: less than 15 minutes Quality Stroke Does the patient have a stroke diagnosis?: No VTE Prior VTE?: No VTE Risk Level:: Medical - moderate - high VTE Device Contraindication: N/A - Device Ordered VTE Drug Contraindication: Treatment Not Indicated
[2020-10-31] MEDS: Enoxaparin Sodium 40 MG/0.4 ML SYRINGE SUBCUT (15:45)
[2020-10-31 19:22] VITALS: BP 142/88; PULSE 86; RESP 17; TEMP 36.7; O2SAT 98
[2020-10-31 23:16] VITALS: BP 116/76; PULSE 86; RESP 18; TEMP 36.9; O2SAT 98
[2020-11-01] VITALS (8 sets, daily range): BP systolic 116–145; BP diastolic 77–87; PULSE 73–94; RESP 16–19; TEMP 36.3–37.4; O2SAT 97–98
[2020-11-01] MEDS: 0.9 % Sodium Chloride Flush 3 ML SYRINGE IVFLUSH ×4 (00:18→21:35)
[2020-11-01] MEDS: oxyCODONE HCl Immed Release 5 MG TABLET 10 MG PO ×2 (01:13→11:28)
[2020-11-01 06:13] LABS: MANUAL DIFF FLAG NO
[2020-11-01 06:20] LABS: Basophils Percent Auto 0.4 % (0-2); Eosinophils Absolute Auto 0.1 X10*3/uL (0.0-0.4); Eosinophils Percent Auto 1.7 % (0-4); Hematocrit 31.9 % (42-52); Imm Gran Abs Auto 0.05 X10*3/uL (0.00-0.03); Imm Gran Pct Auto 0.6 % (0.0-0.4); Lymphocytes Absolute Auto 2.5 X10*3/uL (1.2-4.9); Lymphocytes Percent Auto 30.9 % (20-40); Mean Corpuscular HGB Conc 34.5 g/dl (31.0-36.0); Mean Corpuscular Hemoglobin 30.8 pg (27.0-33.0); Mean Corpuscular Volume 89.4 fL (80-98); Mean Platelet Volume 10.3 fL (9.4-12.4); Monocytes Absolute Auto 0.8 X10*3/uL (0.1-1.2); Monocytes Percent Auto 10.3 % (2-11); Neutrophils Absolute Auto 4.6 X10*3/uL (2.0-8.3); Neutrophils Percent Auto 56.1 % (45-73); Platelet Count 183 X10*3/uL (160-400); Red Blood Count 3.57 X10*6/uL (4.60-5.80); Red Cell Distribution Width 12.2 % (11.0-16.0); White Blood Count 8.2 X10*3/uL (4.8-10.8)
[2020-11-01 06:32] LABS: Anion Gap 11 (12-20); Blood Urea Nitrogen 24 mg/dL (9-16); Calcium 9.2 mg/dL (8.4-10.2); Carbon Dioxide 28 mmol/L (22-29); Chloride 99 mmol/L (96-108); Creatinine Clr Calc Pharmacy 137.7; Estimated Glomerular Filt Rate > 60; Glucose Random 96 mg/dL (60-115); Potassium 4.2 mmol/L (3.3-5.1); Sodium 134 mmol/L (135-145)
[2020-11-01] MEDS: Docusate Sodium 100 MG CAPSULE PO ×2 (09:12→21:35)
[2020-11-01] MEDS: HYDROmorphone HCl 2 MG/ML VIAL 0.5 MG IVPUSH ×3 (09:12→19:19)
--- NOTE | 2020-11-01 14:55 | MHC.CM.PN ---
PER REVIEW OF NOTES, PLAN IS FOR PATIENT TO RETURN TO THE [facility] ON SUNDAY. CASE MANAGEMENT FOLLOWING.
[2020-11-02] VITALS (27 sets, daily range): BP systolic 98–147; BP diastolic 64–96; PULSE 74–119; RESP 16–18; TEMP 35.9–36.8; O2SAT 97–100
[2020-11-02] MEDS: HYDROmorphone HCl 2 MG/ML VIAL 0.5 MG IVPUSH ×2 (03:01→07:13)
[2020-11-02 05:52] LABS: MANUAL DIFF FLAG NO
[2020-11-02 05:58] LABS: Basophils Absolute Auto 0.1 X10*3/uL (0.0-0.2); Basophils Percent Auto 0.6 % (0-2); Eosinophils Absolute Auto 0.1 X10*3/uL (0.0-0.4); Eosinophils Percent Auto 1.6 % (0-4); Hematocrit 30.8 % (42-52); Imm Gran Abs Auto 0.08 X10*3/uL (0.00-0.03); Lymphocytes Absolute Auto 2.2 X10*3/uL (1.2-4.9); Lymphocytes Percent Auto 27.8 % (20-40); Mean Corpuscular HGB Conc 35.7 g/dl (31.0-36.0); Mean Corpuscular Hemoglobin 31.7 pg (27.0-33.0); Mean Corpuscular Volume 88.8 fL (80-98); Mean Platelet Volume 10.5 fL (9.4-12.4); Monocytes Absolute Auto 0.8 X10*3/uL (0.1-1.2); Monocytes Percent Auto 10.2 % (2-11); Neutrophils Absolute Auto 4.5 X10*3/uL (2.0-8.3); Neutrophils Percent Auto 58.8 % (45-73); Platelet Count 199 X10*3/uL (160-400); Red Blood Count 3.47 X10*6/uL (4.60-5.80); Red Cell Distribution Width 12.3 % (11.0-16.0); White Blood Count 7.7 X10*3/uL (4.8-10.8)
[2020-11-02 06:10] LABS: Anion Gap 12 (12-20); Blood Urea Nitrogen 23 mg/dL (9-16); Calcium 9.1 mg/dL (8.4-10.2); Carbon Dioxide 24 mmol/L (22-29); Chloride 102 mmol/L (96-108); Creatinine Clr Calc Pharmacy 146.1; Estimated Glomerular Filt Rate > 60; Glucose Random 100 mg/dL (60-115); Potassium 4.4 mmol/L (3.3-5.1); Sodium 134 mmol/L (135-145)
[2020-11-02] MEDS: 0.9 % Sodium Chloride Flush 3 ML SYRINGE IVFLUSH ×2 (07:09→21:26)
--- NOTE | 2020-11-02 10:59 | HO.ANESPROP2 ---
HPI - Anesthesia Eval Consult details Narrative: 50 M presenting for ORIF of displaced ankle fracture. Status post external fixation. Extreme pain with motion, unlikely to be able to tolerate regional block. [facility] Active Problems Active Problems: All Active Problems (Updated 10/25/20 @ 10:30 by Jose Martin Copeland MD) Hyponatremia (Acute) HTN (hypertension) (Acute) Fracture of tibial plateau (Acute) Past Medical History Medical History HTN (hypertension) Functional capacity: independent ambulation Family History Family history of problems with anesthesia: No Social History Social History Household Members: Family Housing: House Patient Tobacco Use Status: Current everyday Tobacco user Tobacco use type: Cigarette Cigarette Packs Per Day: 1 Cigarettes Per Day: 20.0 Years Smoked: 20 Smoked in Last 30 Days: Yes Use of substances other than those prescribed or required for medical reasons: Yes Currently Displaying Signs/Symptoms of Drug Intoxication Withdrawal: No Have you been hit, kicked, punched, or otherwise hurt by someone within the past year? If so, by whom?: No Do you feel safe in your current relationship?: Yes Is there a partner from a previous relationship who is making you feel unsafe now?: No Are you made to feel afraid or neglected: No Are you DNR?: No Advance Directives: No Advance Directives Information Provided: Yes Do you have thoughts of harming others: None Do you have a plan to hurt others: No Plan Recently lost weight without trying: No Eating poorly because of decreased appetite: No Nutrition Risks: No Nutritional Risk Poor oral hygiene: No service: No Current occupational status: unemployed Meds Allergies Allergy/AdvReac Type Severity Reaction Status Date / Time No Known Allergies Allergy Verified 10/24/20 08:48 Active Medications: Current Medications Generic Name Dose Route Start Last Admin Trade Name Freq PRN Reason Stop Dose Admin Acetaminophen 650 mg 10/23/20 22:56 Acetaminophen Supp 650 Mg Supp.Rect DE Q6H PRN Pain, Mild (Pain Scale 1-3) Docusate Sodium 100 mg 10/23/20 22:56 11/02/20 07:10 Docusate Sodium 100 Mg Capsule PO Not Given BID MARIELLE Enoxaparin Sodium 40 mg 10/26/20 17:00 11/01/20 16:06 Enoxaparin Sodium 40 Mg/0.4 Ml Syringe SUBCUT Not Given Q24H MARIELLE Ondansetron HCl 4 mg 10/23/20 22:56 Ondansetron Odt 4 Mg Tab.Rapdis TRANSLINGU Q6H PRN nausea Oxycodone HCl 10 mg 10/29/20 07:58 11/01/20 11:28 Oxycodone Hcl Immed Release 5 Mg Tablet PO 10 mg Q6H PRN Administration pain Sodium Chloride 3 ml 10/24/20 00:00 11/02/20 07:09 0.9 % Sodium Chloride Flush 3 Ml Syringe IVFLUSH 3 ml QSHIFT [facility] Administration Home Medications Medication Instructions Recorded Confirmed Last Taken Type lisinopril 30 mg tablet 1 tab PO DAILY 10/23/20 10/23/20 Unknown History Exam Exam Date and Time: November 02, 2020 1059 Height,Weight and Vital Signs: Height 6 ft 1 in Weight 117.2 kg Last Vital Signs Temp 96.7 F L 11/02/20 07:05 Pulse 76 11/02/20 07:05 Resp 16 11/02/20 07:05 BP 119/78 11/02/20 07:05 Pulse Ox 98 11/02/20 07:05 Pertinent Lab Results Pertinent Lab Results: Laboratory Tests 10/23/20 10/23/20 10/23/20 19:53 19:56 19:56 WBC 6.4 RBC 4.52 L Hgb 14.2 Hct 40.7 L MCV 90.0 MCH 31.4 MCHC 34.9 RDW 12.6 Plt Count 112 L MPV 11.5 Immature Gran % (Auto) 0.3 Neut % (Auto) 61.8 Lymph % (Auto) 28.7 [place] % (Auto) 7.8 Eos % (Auto) 0.6 Baso % (Auto) 0.8 Lymph # (Auto) 1.8 [place] # (Auto) 0.5 Eos # (Auto) 0.0 Baso # (Auto) 0.1 Abs Immat Gran (auto) 0.02 Absolute Neuts (auto) 4.0 Absolute Nucleated RBC 0.000 Nucleated RBC % (auto) 0.0 PT 12.2 INR 1.1 APTT 34.4 Sodium 135 Potassium 4.1 Chloride 102 Carbon Dioxide 21 L Anion Gap 16 BUN 13 Creatinine 0.93 Estim Creat Clear Calc 126.7 Estimated GFR > 60 Random Glucose 105 Fasting Glucose Calcium 9.1 COVID-19 ([facility]) COVID-19 Clin Com Blood Type Antibody Screen 10/23/20 10/23/20 10/24/20 20:30 23:02 06:18 WBC 6.8 RBC 4.11 L Hgb 12.9 L Hct 37.2 L MCV 90.5 MCH 31.4 MCHC 34.7 RDW 12.6 Plt Count 111 L MPV 12.2 Immature Gran % (Auto) 0.4 Neut % (Auto) 62.9 Lymph % (Auto) 26.8 [place] % (Auto) 8.3 Eos % (Auto) 1.2 Baso % (Auto) 0.4 Lymph # (Auto) 1.8 [place] # (Auto) 0.6 Eos # (Auto) 0.1 Baso # (Auto) 0.0 Abs Immat Gran (auto) 0.03 Absolute Neuts (auto) 4.3 Absolute Nucleated RBC 0.000 Nucleated RBC % (auto) 0.0 PT INR APTT Sodium Potassium Chloride Carbon Dioxide Anion Gap BUN Creatinine Estim Creat Clear Calc Estimated GFR Random Glucose Fasting Glucose Calcium COVID-19 ([facility]) Negative COVID-19 Clin Com See Note Blood Type O Positive Antibody Screen NEGATIVE 10/24/20 10/25/20 10/25/20 06:18 05:54 05:55 WBC 7.0 RBC 3.71 L Hgb 11.6 L Hct 33.4 L MCV 90.0 MCH 31.3 MCHC 34.7 RDW 12.3 Plt Count 103 L MPV 11.2 Immature Gran % (Auto) 0.3 Neut % (Auto) 55.2 Lymph % (Auto) 32.3 [place] % (Auto) 10.8 Eos % (Auto) 1.0 Baso % (Auto) 0.4 Lymph # (Auto) 2.3 [place] # (Auto) 0.8 Eos # (Auto) 0.1 Baso # (Auto) 0.0 Abs Immat Gran (auto) 0.02 Absolute Neuts (auto) 3.9 Absolute Nucleated RBC 0.000 Nucleated RBC % (auto) 0.0 PT INR APTT Sodium 133 L 131 L Potassium 4.3 4.3 Chloride 104 100 Carbon Dioxide 21 L 24 Anion Gap 12 11 L BUN 10 11 Creatinine 0.78 0.85 Estim Creat Clear Calc 153.6 140.9 Estimated GFR > 60 > 60 Random Glucose Fasting Glucose 111 H 124 H Calcium 8.8 8.7 COVID-19 ([facility]) COVID-19 [facility] Blood Type Antibody Screen 10/26/20 10/26/20 10/27/20 05:42 05:42 05:53 WBC 4.7 L 7.3 RBC 3.51 L 3.25 L Hgb 11.0 L 10.2 L Hct 31.4 L 29.5 L MCV 89.5 90.8 MCH 31.3 31.4 MCHC 35.0 34.6 RDW 12.0 12.2 Plt Count 99 L 115 L MPV 11.7 12.1 Immature Gran % (Auto) 0.4 0.5 H Neut % (Auto) 70.0 61.1 Lymph % (Auto) 19.5 L 28.6 [place] % (Auto) 9.7 9.2 Eos % (Auto) 0.0 0.3 Baso % (Auto) 0.4 0.3 Lymph # (Auto) 0.9 L 2.1 [place] # (Auto) 0.5 0.7 Eos # (Auto) 0.0 0.0 Baso # (Auto) 0.0 0.0 Abs Immat Gran (auto) 0.02 0.04 H Absolute Neuts (auto) 3.3 4.5 Absolute Nucleated RBC 0.000 0.000 Nucleated RBC % (auto) 0.0 0.0 PT INR APTT Sodium 135 Potassium 4.4 Chloride 103 Carbon Dioxide 26 Anion Gap 10 L BUN 12 Creatinine 0.78 Estim Creat Clear Calc 153.6 Estimated GFR > 60 Random Glucose TNP Fasting Glucose 124 H Calcium 8.8 COVID-19 ([facility]) COVID-19 [facility] Blood Type Antibody Screen 10/27/20 10/28/20 10/28/20 05:54 05:54 05:54 WBC 7.8 RBC 3.43 L Hgb 10.7 L Hct 31.4 L MCV 91.5 MCH 31.2 MCHC 34.1 RDW 12.5 Plt Count 137 L MPV 11.1 Immature Gran % (Auto) 0.6 H Neut % (Auto) 50.9 Lymph % (Auto) 38.0 [place] % (Auto) 8.9 Eos % (Auto) 1.2 Baso % (Auto) 0.4 Lymph # (Auto) 3.0 [place] # (Auto) 0.7 Eos # (Auto) 0.1 Baso # (Auto) 0.0 Abs Immat Gran (auto) 0.05 H Absolute Neuts (auto) 4.0 Absolute Nucleated RBC 0.000 Nucleated RBC % (auto) 0.0 PT INR APTT Sodium 140 141 Potassium 4.4 4.0 Chloride 102 106 Carbon Dioxide 28 29 Anion Gap 14 10 L BUN 18 H 21 H Creatinine 0.77 0.84 Estim Creat Clear Calc 155.6 142.6 Estimated GFR > 60 > 60 Random Glucose Fasting Glucose 111 H 88 Calcium 8.8 9.0 COVID-19 ([facility]) COVID-19 Clin Com Blood Type Antibody Screen 10/30/20 10/30/20 10/31/20 06:12 06:12 06:14 WBC 9.5 9.6 RBC 3.78 L 3.58 L Hgb 11.8 L 11.4 L Hct 33.4 L 32.2 L MCV 88.4 89.9 MCH 31.2 31.8 MCHC 35.3 35.4 RDW 12.2 12.2 Plt Count 171 180 MPV 10.6 10.7 Immature Gran % (Auto) 0.5 H 0.6 H Neut % (Auto) 57.9 57.7 Lymph % (Auto) 29.5 29.6 [place] % (Auto) 10.6 10.3 Eos % (Auto) 1.1 1.4 Baso % (Auto) 0.4 0.4 Lymph # (Auto) 2.8 2.8 [place] # (Auto) 1.0 1.0 Eos # (Auto) 0.1 0.1 Baso # (Auto) 0.0 0.0 Abs Immat Gran (auto) 0.05 H 0.06 H Absolute Neuts (auto) 5.5 5.5 Absolute Nucleated RBC 0.000 0.000 Nucleated RBC % (auto) 0.0 0.0 PT INR APTT Sodium 133 L Potassium 4.5 Chloride 99 Carbon Dioxide 25 Anion Gap 14 BUN 22 H Creatinine 0.84 Estim Creat Clear Calc 142.6 Estimated GFR > 60 Random Glucose 105 Fasting Glucose Calcium 9.8 D COVID-19 ([facility]) COVID-19 Clin Com Blood Type Antibody Screen 10/31/20 11/01/20 11/01/20 06:14 06:00 06:00 WBC 8.2 RBC 3.57 L Hgb 11.0 L Hct 31.9 L MCV 89.4 MCH 30.8 MCHC 34.5 RDW 12.2 Plt Count 183 MPV 10.3 Immature Gran % (Auto) 0.6 H Neut % (Auto) 56.1 Lymph % (Auto) 30.9 [place] % (Auto) 10.3 Eos % (Auto) 1.7 Baso % (Auto) 0.4 Lymph # (Auto) 2.5 [place] # (Auto) 0.8 Eos # (Auto) 0.1 Baso # (Auto) 0.0 Abs Immat Gran (auto) 0.05 H Absolute Neuts (auto) 4.6 Absolute Nucleated RBC 0.000 Nucleated RBC % (auto) 0.0 PT INR APTT Sodium 134 L 134 L Potassium 4.3 4.2 Chloride 98 99 Carbon Dioxide 26 28 Anion Gap 14 11 L BUN 26 H 24 H Creatinine 0.89 0.87 Estim Creat Clear Calc 134.6 137.7 Estimated GFR > 60 > 60 Random Glucose 99 96 Fasting Glucose Calcium 9.4 9.2 COVID-19 ([facility]) COVID-19 [facility] Blood Type Antibody Screen 11/02/20 11/02/20 05:14 05:14 WBC 7.7 RBC 3.47 L Hgb 11.0 L Hct 30.8 L MCV 88.8 MCH 31.7 MCHC 35.7 RDW 12.3 Plt Count 199 MPV 10.5 Immature Gran % (Auto) 1.0 H Neut % (Auto) 58.8 Lymph % (Auto) 27.8 [place] % (Auto) 10.2 Eos % (Auto) 1.6 Baso % (Auto) 0.6 Lymph # (Auto) 2.2 [place] # (Auto) 0.8 Eos # (Auto) 0.1 Baso # (Auto) 0.1 Abs Immat Gran (auto) 0.08 H Absolute Neuts (auto) 4.5 Absolute Nucleated RBC 0.000 Nucleated RBC % (auto) 0.0 PT INR APTT Sodium 134 L Potassium 4.4 Chloride 102 Carbon Dioxide 24 Anion Gap 12 BUN 23 H Creatinine 0.82 Estim Creat Clear Calc 146.1 Estimated GFR > 60 Random Glucose 100 Fasting Glucose Calcium 9.1 COVID-19 ([facility]) COVID-19 Clin Com Blood Type Antibody Screen Airway Mallampati Class: III TM Dist: >3cm Neck ROM: Full Loose/Missing/Broken Teeth: No Heart: RRR Assessment and Plan Assessment Anesthesia Assessment: Anesthesia Plan Discussed and Chart Reviewed Final Anesthetic Review Family History of Problems with Anesthesia: No NPO: Yes ASA Class: II Final Preanesthetic Review: No Changes in Pt Med Stat, Meds/Allgs Chart Reviewed, Consent Obtained/Reviewed and Anes Risks/Benef Reviewed Patient Risk: Intermediate Procedure Risk: Low Anesthetic Plan Anesthetic Plan: GA Disposition: Standard PACU
--- NOTE | 2020-11-02 12:08 | MHC.SHP ---
Pre-Procedural Eval Section A Date of Service: 11/02/20 The patient is an INPATIENT: Yes Changes since office visit: Yes Patient answered all questions; No Cold of Flu in the past 2 weeks, No New Medical Problems and No Changes in Medication The History & Physical has been completed within 30 days and I have reviewed it.: Yes Section B Chief Complaint: Left distal femur fracture Allergies: Allergies Allergy/AdvReac Type Severity Reaction Status Date / Time No Known Allergies Allergy Verified 10/24/20 08:48 Plan I have reviewed the history and physical and performed a pertinent physical examination on my patient. No changes have occurred unless specified.
[2020-11-02] MEDS: Lactated Ringers 1,000 ML 50 ML IVCONT (12:14)
--- NOTE | 2020-11-02 12:25 | PC.NURSE ---
Patient came down to [facility] from floor wearing one silver ring. This taken off and placed in blue patient labeled bin. Bin placed in cabinet by this RN.
--- NOTE | 2020-11-02 18:32 | PM.OP ---
Brief Operative Note Date of Service: 11/02/20 Pre-op diagnosis: left tibia fracture Post-op diagnosis: same Procedure: orif left tibia Implants: nestor Surgeon: Ashok Mcintosh MD Anesthesia: GETA and local Was an Calliope Player used for this Procedure?: Yes Calliope Player: Dasha Cortez Estimated blood loss (mL): 500 Tourniquet time (min): 120 IV fluids (mL): 2,200 Pathology: none sent Condition: stable Disposition: PACU
[2020-11-02] MEDS: HYDROmorphone HCl 0.5 MG/0.5 ML SYRINGE IVPUSH ×2 (19:05→19:19)
[2020-11-02 19:20] LABS: Hematocrit 26.8 % (42-52); Hemoglobin 9.2 g/dl (14.0-18.0)
[2020-11-02] MEDS: fentaNYL citrate/PF 100 MCG/2 ML VIAL 25 MCG IVPUSH ×4 (19:35→20:15)
[2020-11-02] MEDS: oxyCODONE HCl ER 10 MG TAB.ER.12H PO (21:22)
[2020-11-02] MEDS: Docusate Sodium 100 MG CAPSULE PO (21:22)
[2020-11-02] MEDS: Enoxaparin Sodium 40 MG/0.4 ML SYRINGE SUBCUT (21:22)
[2020-11-02] MEDS: oxyCODONE HCl Immed Release 5 MG TABLET 10 MG PO (21:26)
[2020-11-02] MEDS: Ondansetron ODT 4 MG TAB.RAPDIS TRANSLINGU (23:31)
[2020-11-02] MEDS: HYDROmorphone HCl 1 MG/ML SYRINGE 0.25 MG IVPUSH (23:31)
[2020-11-03] VITALS (8 sets, daily range): BP systolic 112–129; BP diastolic 68–78; PULSE 78–113; RESP 16–20; TEMP 36–37.4; O2SAT 95–99
[2020-11-03] MEDS: oxyCODONE HCl Immed Release 5 MG TABLET 10 MG PO ×4 (01:17→20:10)
[2020-11-03] MEDS: HYDROmorphone HCl 1 MG/ML SYRINGE 0.25 MG IVPUSH (05:27)
[2020-11-03 06:30] LABS: MANUAL DIFF FLAG NO
[2020-11-03 06:53] LABS: Basophils Percent Auto 0.3 % (0-2); Hematocrit 24.5 % (42-52); Hemoglobin 8.5 g/dl (14.0-18.0); Imm Gran Abs Auto 0.13 X10*3/uL (0.00-0.03); Imm Gran Pct Auto 1.1 % (0.0-0.4); Lymphocytes Absolute Auto 2.5 X10*3/uL (1.2-4.9); Lymphocytes Percent Auto 20.9 % (20-40); Mean Corpuscular HGB Conc 34.7 g/dl (31.0-36.0); Mean Corpuscular Volume 89.4 fL (80-98); Mean Platelet Volume 10.5 fL (9.4-12.4); Monocytes Absolute Auto 1.4 X10*3/uL (0.1-1.2); Monocytes Percent Auto 11.4 % (2-11); NRBC Pct Auto 0.7 /100WBC (0.0-0.2); Neutrophils Absolute Auto 7.9 X10*3/uL (2.0-8.3); Neutrophils Percent Auto 66.3 % (45-73); Platelet Count 247 X10*3/uL (160-400); Red Blood Count 2.74 X10*6/uL (4.60-5.80); Red Cell Distribution Width 12.9 % (11.0-16.0); White Blood Count 11.9 X10*3/uL (4.8-10.8)
[2020-11-03 07:11] LABS: Anion Gap 12 (12-20); Blood Urea Nitrogen 27 mg/dL (9-16); Calcium 8.4 mg/dL (8.4-10.2); Carbon Dioxide 24 mmol/L (22-29); Chloride 101 mmol/L (96-108); Creatinine Clr Calc Pharmacy 122.2; Estimated Glomerular Filt Rate > 60; Glucose Random 122 mg/dL (60-115); Potassium 5.1 mmol/L (3.3-5.1); Sodium 132 mmol/L (135-145)
[2020-11-03] MEDS: Docusate Sodium 100 MG CAPSULE PO ×2 (07:16→20:10)
[2020-11-03] MEDS: oxyCODONE HCl ER 10 MG TAB.ER.12H PO ×2 (07:16→20:10)
[2020-11-03] MEDS: 0.9 % Sodium Chloride Flush 3 ML SYRINGE IVFLUSH ×3 (07:17→23:47)
--- NOTE | 2020-11-03 07:48 | PM.PNORT ---
Subjective Subjective Date of Service: 11/03/20 Interval history: POD1 s/p left tibial ORIF with Dr. Mcintosh. Pain management has been difficult overnight. will make adjustments this morning. No additional complaints. Physical Exam Vital Signs: Vital Signs: Last Vital Signs Temp 99.4 F 11/03/20 07:15 Pulse 85 11/03/20 07:15 Resp 18 11/03/20 07:15 BP 112/75 11/03/20 07:15 Pulse Ox 97 11/03/20 07:15 Body Mass Index 34.0 Const: General: cooperative, healthy appearing and no acute distress Resp: Effort & Inspection: normal respiratory effort and able to speak in complete sentences Cardio: Rate: regular rate Peripheral pulses: Peripheral pulses 2+ throughout GI: Palpation (GI): Soft to palpation Skin: Lesions: no lesions Rashes: no rashes Extrem: Other: Left tibia bandages are clean, dry, and intact. Patient is able to move digits. Sensation intact. Pedal pulse intact. Procedures Date of Service Date of Service: 11/03/20 Progress Note: A&P Assessment and plan (1) Fracture of tibial plateau: Status: Acute Assessment and Plan: Continue pain mgmnt Monitor H/H, hold on transfusion at this time Resume Lovenox dvt ppx this evening Continue PT for left tibial ORIF Dispo planning-Pending PT eval, pain mgmnt Fall Risk Details Current Medications: Current Medications Generic Name Dose Route Start Last Admin Trade Name Freq PRN Reason Stop Dose Admin Acetaminophen 650 mg 10/23/20 22:56 Acetaminophen Supp 650 Mg Supp.Rect MS Q6H PRN Pain, Mild (Pain Scale 1-3) Cephalexin HCl 2,000 mg 11/03/20 07:45 Cephalexin 500 Mg Capsule PO Q8H MARIELLE Docusate Sodium 100 mg 10/23/20 22:56 11/03/20 07:16 Docusate Sodium 100 Mg Capsule PO 100 mg BID MARIELLE Administration Enoxaparin Sodium 40 mg 11/03/20 21:00 Enoxaparin Sodium 40 Mg/0.4 Ml Syringe SUBCUT Q24H MARIELLE Hydromorphone HCl 0.25 mg 11/02/20 21:05 11/03/20 05:27 Hydromorphone Hcl 1 Mg/Ml Syringe IVPUSH 0.25 mg Q4H PRN Administration Pain, Severe (Pain Scale 7-10) Protocol Ondansetron HCl 4 mg 10/23/20 22:56 11/02/20 23:31 Ondansetron Odt 4 Mg Tab.Rapdis TRANSLINGU 4 mg Q6H PRN Administration nausea Oxycodone HCl 10 mg 10/29/20 07:58 11/03/20 07:15 Oxycodone Hcl Immed Release 5 Mg Tablet PO 10 mg Q6H PRN Administration pain Oxycodone HCl 10 mg 11/02/20 21:03 11/03/20 07:16 Oxycodone Hcl Er 10 Mg Tab.Er.12h PO 10 mg BID MARIELLE Administration Sodium Chloride 3 ml 10/24/20 00:00 11/03/20 07:17 0.9 % Sodium Chloride Flush 3 Ml Syringe IVFLUSH 3 ml QSHIFT MARIELLE Administration Time Spent With Patient Time: Total time spent is greater than 50% in coordination of care (as documented) at patient's floor/unit and/or counseling patient: Time with patient: less than 15 minutes Quality Stroke Does the patient have a stroke diagnosis?: No VTE Prior VTE?: No VTE Risk Level:: Medical - moderate - high VTE Device Contraindication: N/A - Device Ordered VTE Drug Contraindication: Treatment Not Indicated
[2020-11-03] MEDS: cephALEXin 500 MG CAPSULE 1000 MG PO ×3 (09:31→20:10)
[2020-11-03] MEDS: HYDROmorphone HCl 1 MG/ML SYRINGE 0.5 MG IVPUSH ×3 (09:31→17:44)
--- NOTE | 2020-11-03 13:28 | P.CDIC_ITS ---
CDI Concurrent Query Documentation Clarification: PHYSICIAN'S DOCUMENTATION REQUEST Date of Query: 11/03/20 0734 Patient Name: David Valladares Admit Date: 10/23/20 Dear Doctor, A review of the medical record indicates additional documentation may be needed. Please review below and update the documentation accordingly. Clinical Indicators: Risk Factors/Clinical Indicators/Treatments H/H on 11/02/20: 11.0/30.8 H/H on 11/03/20: 8.5/24.5 s/p ORIF left tibia on 11/02/20 Based on the above, could you clarify which of the following is the most likely type of anemia you are evaluating, treating, and/or monitoring? * Acute blood loss anemia * Other ? please specify * Unable to determine Use of terms such as suspected, likely, concern for, or probable (associated with a specific diagnosis that is being evaluated, monitored, or treated as if it exists) are acceptable and can be coded in the inpatient setting, when documented at the time of discharge. Thank you, Marybeth Arellano RN Extension: [phone] Please use your independent medical judgment in providing your response. THIS QUERY IS PART OF THE PERMANENT MEDICAL RECORD
--- NOTE | 2020-11-03 15:11 | HO.POSTANES ---
Post Anesthesia Evaluation Post Anesthesia Evaluation Vital Signs: Vital Signs Temp Pulse Resp BP Pulse Ox 11/03/20 11:35 96.8 F 103 H 18 123/78 99 11/03/20 09:20 85 112/75 97 11/03/20 07:15 99.4 F 85 18 112/75 97 11/03/20 03:31 97.0 F 113 H 20 129/76 98 Anesthesia: General Mental Status: Awake Pain Control: Satisfactory Nausea/Vomiting: None Hydration: Adequate Anesthesia-Related Issues: No Anes. Related Issues
[2020-11-04] VITALS (12 sets, daily range): BP systolic 92–137; BP diastolic 52–70; PULSE 87–105; RESP 17–20; TEMP 36.7–37.9; O2SAT 94–100
[2020-11-04] MEDS: HYDROmorphone HCl 1 MG/ML SYRINGE 0.5 MG IVPUSH ×4 (02:28→19:59)
[2020-11-04] MEDS: cephALEXin 500 MG CAPSULE 1000 MG PO ×4 (02:29→20:35)
[2020-11-04 08:16] LABS: MANUAL DIFF FLAG NO
[2020-11-04 08:22] LABS: Basophils Percent Auto 0.2 % (0-2); Eosinophils Percent Auto 0.2 % (0-4); Hematocrit 21.4 % (42-52); Hemoglobin 7.3 g/dl (14.0-18.0); Imm Gran Abs Auto 0.16 X10*3/uL (0.00-0.03); Imm Gran Pct Auto 1.5 % (0.0-0.4); Lymphocytes Absolute Auto 2.5 X10*3/uL (1.2-4.9); Mean Corpuscular HGB Conc 34.1 g/dl (31.0-36.0); Mean Corpuscular Hemoglobin 31.5 pg (27.0-33.0); Mean Corpuscular Volume 92.2 fL (80-98); Mean Platelet Volume 10.5 fL (9.4-12.4); Monocytes Absolute Auto 1.3 X10*3/uL (0.1-1.2); Monocytes Percent Auto 11.5 % (2-11); NRBC Pct Auto 1.7 /100WBC (0.0-0.2); Neutrophils Absolute Auto 6.9 X10*3/uL (2.0-8.3); Neutrophils Percent Auto 63.6 % (45-73); Platelet Count 225 X10*3/uL (160-400); Red Blood Count 2.32 X10*6/uL (4.60-5.80); Red Cell Distribution Width 13.6 % (11.0-16.0); White Blood Count 10.9 X10*3/uL (4.8-10.8)
[2020-11-04] MEDS: Docusate Sodium 100 MG CAPSULE PO ×2 (08:23→20:35)
[2020-11-04] MEDS: oxyCODONE HCl ER 10 MG TAB.ER.12H PO ×2 (08:23→20:35)
--- NOTE | 2020-11-04 08:25 | P.PNOP_ITS ---
Subjective Subjective Date of Service: 11/04/20 Interval history: POD2 s/p left tibial ORIF wih Dr. Mcintosh. Patient is resting in bed. No overnight events. Pain is managed. No additional complaints Physical Exam Vital Signs: Vital Signs: Last Vital Signs Temp 98.3 F 11/04/20 07:42 Pulse 98 11/04/20 07:42 Resp 18 11/04/20 07:42 BP 124/68 11/04/20 07:42 Pulse Ox 98 11/04/20 07:42 Body Mass Index 34.0 Const: General: cooperative, healthy appearing and no acute distress Resp: Effort & Inspection: normal respiratory effort and able to speak in complete sentences Cardio: Rate: regular rate Peripheral pulses: Peripheral pulses 2+ throu ghout GI: Palpation (GI): Soft to palpation Skin: Lesions: no lesions Rashes: no rashes Extrem: Other: ?Left tibia bandages are clean, dry, and intact. Prevena intact. Patient is able to move digits. Sensation intact. Pedal pulse intact. Procedures Date of Service Date of Service: 11/04/20 Progress Note: A&P Assessment and plan (1) Fracture of tibial plateau: Status: Acute Assessment and Plan: Continue pain mgmnt H/H trending down will give 2 units PRBCs Resume Lovenox dvt ppx this evening at 4:00pm Continue PT for left tibial ORIF Dispo planning-Pain mgmnt Fall Risk Details Current Medications: Current Medications Generic Name Dose Route Start Last Admin Trade Name Freq PRN Reason Stop Dose Admin Acetaminophen 650 mg 10/23/20 22:56 Acetaminophen Supp 650 Mg Supp.Rect IL Q6H PRN Pain, Mild (Pain Scale 1-3) Cephalexin HCl 1,000 mg 11/03/20 08:30 11/04/20 08:23 Cephalexin 500 Mg Capsule PO 1,000 mg Q6H MARIELLE Administration Docusate Sodium 100 mg 10/23/20 22:56 11/04/20 08:23 Docusate Sodium 100 Mg Capsule PO 100 mg BID MARIELLE Administration Enoxaparin Sodium 40 mg 11/04/20 16:00 Enoxaparin Sodium 40 Mg/0.4 Ml Syringe SUBCUT Q24H MARIELLE Hydromorphone HCl 0.5 mg 11/03/20 08:44 11/04/20 02:28 Hydromorphone Hcl 1 Mg/Ml Syringe IVPUSH 0.5 mg Q4H PRN Administration Pain, Severe (Pain Scale 7-10) Protocol Sodium Chloride 1,000 mls @ 999 mls/hr 11/04/20 08:30 Ns IV 11/04/20 09:30 .Q1H1M MARIELLE Ondansetron HCl 4 mg 10/23/20 22:56 11/02/20 23:31 Ondansetron Odt 4 Mg Tab.Rapdis TRANSLINGU 4 mg Q6H PRN Administration nausea Oxycodone HCl 10 mg 10/29/20 07:58 11/03/20 20:10 Oxycodone Hcl Immed Release 5 Mg Tablet PO 10 mg Q6H PRN Administration pain Oxycodone HCl 10 mg 11/02/20 21:03 11/04/20 08:23 Oxycodone Hcl Er 10 Mg Tab.Er.12h PO 10 mg BID MARIELLE Administration Sodium Chloride 3 ml 10/24/20 00:00 11/03/20 23:47 0.9 % Sodium Chloride Flush 3 Ml Syringe IVFLUSH 3 ml QSHIFT MARIELLE Administration Time Spent With Patient Time: Total time spent is greater than 50% in coordination of care (as documented) at patient's floor/unit and/or counseling patient: Time with patient: less than 15 minutes Quality Stroke Does the patient have a stroke diagnosis?: No VTE Prior VTE?: No VTE Risk Level:: Medical - moderate - high VTE Device Contraindication: N/A - Device Ordered VTE Drug Contraindication: Treatment Not Indicated
[2020-11-04 08:37] LABS: Anion Gap 10 (12-20); Blood Urea Nitrogen 22 mg/dL (9-16); Calcium 8.2 mg/dL (8.4-10.2); Carbon Dioxide 27 mmol/L (22-29); Chloride 98 mmol/L (96-108); Creatinine Clr Calc Pharmacy 142.6; Estimated Glomerular Filt Rate > 60; Glucose Random 100 mg/dL (60-115); Potassium 4.6 mmol/L (3.3-5.1); Sodium 130 mmol/L (135-145)
[2020-11-04] MEDS: 0.9 % Sodium Chloride 1,000 ML 999 ML IV (08:40)
[2020-11-04] MEDS: Enoxaparin Sodium 40 MG/0.4 ML SYRINGE SUBCUT (16:24)
[2020-11-04] MEDS: oxyCODONE HCl Immed Release 5 MG TABLET 10 MG PO (16:36)
[2020-11-04] MEDS: Acetaminophen Supp 650 MG SUPP.RECT PR (20:00)
[2020-11-04] MEDS: 0.9 % Sodium Chloride Flush 3 ML SYRINGE IVFLUSH (20:35)
[2020-11-05] VITALS (11 sets, daily range): BP systolic 104–142; BP diastolic 58–79; PULSE 84–108; RESP 16–20; TEMP 36.6–39.4; O2SAT 97–98
[2020-11-05] MEDS: cephALEXin 500 MG CAPSULE 1000 MG PO ×4 (01:52→21:19)
--- NOTE | 2020-11-05 03:40 | PC.NURSE ---
11/04/201999 temperature 100.2 orally after 1st unit of RBC. notified.ordered to give tylenol .tylenol supp 650mg given at 1999.
--- NOTE | 2020-11-05 03:44 | PC.NURSE ---
11/04/20 2230 temperature 98.9 orally 2nd unit of RBC hung.new iv site #20 angio started in left ac.blood infusing well.
[2020-11-05] MEDS: oxyCODONE HCl ER 10 MG TAB.ER.12H PO ×2 (07:26→21:19)
[2020-11-05] MEDS: Docusate Sodium 100 MG CAPSULE PO ×2 (07:26→21:19)
[2020-11-05] MEDS: 0.9 % Sodium Chloride Flush 3 ML SYRINGE IVFLUSH ×3 (07:27→21:19)
[2020-11-05 08:00] LABS: MANUAL DIFF FLAG NO
[2020-11-05 08:04] LABS: Basophils Percent Auto 0.3 % (0-2); Eosinophils Absolute Auto 0.1 X10*3/uL (0.0-0.4); Eosinophils Percent Auto 0.8 % (0-4); Hematocrit 24.9 % (42-52); Hemoglobin 8.4 g/dl (14.0-18.0); Imm Gran Abs Auto 0.21 X10*3/uL (0.00-0.03); Imm Gran Pct Auto 2.8 % (0.0-0.4); Lymphocytes Absolute Auto 1.7 X10*3/uL (1.2-4.9); Lymphocytes Percent Auto 22.7 % (20-40); Mean Corpuscular HGB Conc 33.7 g/dl (31.0-36.0); Mean Corpuscular Hemoglobin 30.8 pg (27.0-33.0); Mean Corpuscular Volume 91.2 fL (80-98); Mean Platelet Volume 10.1 fL (9.4-12.4); Monocytes Absolute Auto 0.7 X10*3/uL (0.1-1.2); Monocytes Percent Auto 8.7 % (2-11); NRBC Pct Auto 2.4 /100WBC (0.0-0.2); Neutrophils Absolute Auto 4.8 X10*3/uL (2.0-8.3); Neutrophils Percent Auto 64.7 % (45-73); Platelet Count 202 X10*3/uL (160-400); Red Blood Count 2.73 X10*6/uL (4.60-5.80); Red Cell Distribution Width 13.8 % (11.0-16.0); White Blood Count 7.5 X10*3/uL (4.8-10.8)
--- NOTE | 2020-11-05 08:05 | P.PNOP_ITS ---
Subjective Subjective Date of Service: 11/05/20 Interval history: POD3 status post left tibial ORIF with Dr. Mcintosh. Patient is resting comfortably in bed. Pain is well managed. No overnight events. Physical Exam Vital Signs: Vital Signs: Last Vital Signs Temp 98.0 F 11/05/20 03:53 Pulse 84 11/05/20 03:53 Resp 16 11/05/20 03:53 BP 104/67 11/05/20 03:53 Pulse Ox 98 11/05/20 03:53 Body Mass Index 34.0 Const: General: cooperative, healthy appearing and no acute distress Resp: Effort & Inspection: normal respiratory effort and able to speak in complete sentences Cardio: Rate: regular rate Peripheral pulses: Peripheral pulses 2+ th roughout GI: Palpation (GI): Soft to palpation Skin: Lesions: no lesions Rashes: no rashes Extrem: Other: Left tibia bandages are clean, dry, and intact. Prevena intact. Patient is able to move digits. Sensation intact. Pedal pulse intact. Procedures Date of Service Date of Service: 11/05/20 Progress Note: A&P Assessment and plan (1) Fracture of tibial plateau: Status: Acute Assessment and Plan: Continue pain mgmnt Continue Lovenox for dvt ppx Continue PT for left tibial ORIF Dispo planning-Pain mgmnt Fall Risk Details Current Medications: Current Medications Generic Name Dose Route Start Last Admin Trade Name Freq PRN Reason Stop Dose Admin Acetaminophen 650 mg 10/23/20 22:56 11/04/20 20:00 Acetaminophen Supp 650 Mg Supp.Rect [place] 650 mg Q6H PRN Administration Pain, Mild (Pain Scale 1-3) Cephalexin HCl 1,000 mg 11/03/20 08:30 11/05/20 07:25 Cephalexin 500 Mg Capsule PO 1,000 mg Q6H MARIELLE Administration Docusate Sodium 100 mg 10/23/20 22:56 11/05/20 07:26 Docusate Sodium 100 Mg Capsule PO 100 mg BID MARIELLE Administration Enoxaparin Sodium 40 mg 11/04/20 16:00 11/04/20 16:24 Enoxaparin Sodium 40 Mg/0.4 Ml Syringe SUBCUT 40 mg Q24H MARIELLE Administration Hydromorphone HCl 0.5 mg 11/03/20 08:44 11/04/20 19:59 Hydromorphone Hcl 1 Mg/Ml Syringe IVPUSH 0.5 mg Q4H PRN Administration Pain, Severe (Pain Scale 7-10) Protocol Ondansetron HCl 4 mg 10/23/20 22:56 11/02/20 23:31 Ondansetron Odt 4 Mg Tab.Rapdis TRANSLINGU 4 mg Q6H PRN Administration nausea Oxycodone HCl 10 mg 10/29/20 07:58 11/04/20 16:36 Oxycodone Hcl Immed Release 5 Mg Tablet PO 10 mg Q6H PRN Administration pain Oxycodone HCl 10 mg 11/02/20 21:03 11/05/20 07:26 Oxycodone Hcl Er 10 Mg Tab.Er.12h PO 10 mg BID MARIELLE Administration Sodium Chloride 3 ml 10/24/20 00:00 11/05/20 07:27 0.9 % Sodium Chloride Flush 3 Ml Syringe IVFLUSH 3 ml QSHIFT MARIELLE Administration Time Spent With Patient Time: Total time spent is greater than 50% in coordination of care (as documented) at patient's floor/unit and/or counseling patient: Time with patient: less than 15 minutes Quality Stroke Does the patient have a stroke diagnosis?: No VTE Prior VTE?: No VTE Risk Level:: Medical - moderate - high VTE Device Contraindication: N/A - Device Ordered VTE Drug Contraindication: Treatment Not Indicated
[2020-11-05 08:19] LABS: Anion Gap 10 (12-20); Blood Urea Nitrogen 17 mg/dL (9-16); Calcium 7.9 mg/dL (8.4-10.2); Carbon Dioxide 25 mmol/L (22-29); Chloride 100 mmol/L (96-108); Creatinine Clr Calc Pharmacy 168.7; Estimated Glomerular Filt Rate > 60; Glucose Random 90 mg/dL (60-115); Potassium 3.8 mmol/L (3.3-5.1); Sodium 131 mmol/L (135-145)
[2020-11-05] MEDS: oxyCODONE HCl Immed Release 5 MG TABLET 10 MG PO (11:14)
--- NOTE | 2020-11-05 14:01 | MHC.CM.PN ---
PATIENT IS UNABLE TO SECURE [facility] SERVICES. HIS INSURANCE PLAN REQUIRES A VERIFIED PCP. SURGICAL PA MADE AWARE. PATIENT REFUSES REHAB PLACEMENT PLAN IS FOR PATIENT TO WORK WITH P.T. ON SUNDAY IN [facility] OF [facility]. CASE MANAGEMENT FOLLOWING. Initialized on 11/05/20 13:58 - END OF NOTE
[2020-11-05] MEDS: HYDROmorphone HCl 1 MG/ML SYRINGE 0.5 MG IVPUSH ×2 (14:33→21:19)
[2020-11-05] MEDS: polyethylene glycoL 3350 17 GM POWD.PACK PO (14:34)
[2020-11-05] MEDS: Enoxaparin Sodium 40 MG/0.4 ML SYRINGE SUBCUT (14:34)
[2020-11-05] MEDS: Acetaminophen 325 MG TABLET 650 MG PO (23:42)
[2020-11-06] MEDS: cephALEXin 500 MG CAPSULE 1000 MG PO ×4 (03:59→20:06)
[2020-11-06 04:00] VITALS: BP 108/63; PULSE 84; RESP 20; TEMP 36.6; O2SAT 98
[2020-11-06 05:44] LABS: MANUAL DIFF FLAG NO
[2020-11-06 05:46] LABS: Basophils Percent Auto 0.3 % (0-2); Eosinophils Absolute Auto 0.1 X10*3/uL (0.0-0.4); Eosinophils Percent Auto 0.9 % (0-4); Hematocrit 26.2 % (42-52); Hemoglobin 8.8 g/dl (14.0-18.0); Imm Gran Abs Auto 0.16 X10*3/uL (0.00-0.03); Imm Gran Pct Auto 2.4 % (0.0-0.4); Lymphocytes Percent Auto 29.1 % (20-40); Mean Corpuscular HGB Conc 33.6 g/dl (31.0-36.0); Mean Corpuscular Hemoglobin 30.6 pg (27.0-33.0); Monocytes Absolute Auto 0.5 X10*3/uL (0.1-1.2); Monocytes Percent Auto 7.7 % (2-11); Neutrophils Percent Auto 59.6 % (45-73); Platelet Count 210 X10*3/uL (160-400); Red Blood Count 2.88 X10*6/uL (4.60-5.80); Red Cell Distribution Width 13.9 % (11.0-16.0); White Blood Count 6.7 X10*3/uL (4.8-10.8)
[2020-11-06 05:47] LABS: NRBC Pct Auto 1.3 /100WBC (0.0-0.2)
[2020-11-06 07:06] VITALS: BP 110/71; PULSE 78; RESP 17; TEMP 36.8; O2SAT 99
--- NOTE | 2020-11-06 10:50 | PM.PNORT ---
Subjective Subjective Date of Service: 11/06/20 Interval history: POD 4 s/p left tibial ORIF. Patient is resting comfrotably in bed. Pain is well managed. No overnight events. Patient denies abd pain, chest pain, SOB. No additional complaints. Physical Exam Vital Signs: Vital Signs: Last Vital Signs Temp 98.2 F 11/06/20 07:06 Pulse 78 11/06/20 07:06 Resp 17 11/06/20 07:06 BP 110/71 11/06/20 07:06 Pulse Ox 99 11/06/20 07:06 Body Mass Index 34.0 Const: General: cooperative, healthy appearing and no acute distress Resp: Effort & Inspection: normal respiratory effort and able to speak in complete sentences Cardio: Rate: regular rate Peripheral pulses: Peripheral pulses 2+ throughout GI: Palpation (GI): Soft to palpation Skin: Lesions: no lesions Rashes: no rashes Extrem: Other: Left tibia bandages are clean, dry, and intact. Prevena intact. Patient is able to move digits. Sensation intact. Pedal pulse intact. Procedures Date of Service Date of Service: 11/06/20 Progress Note: A&P Assessment and plan (1) Fracture of tibial plateau: Status: Acute Assessment and Plan: Continue pain mgmnt Continue Lovenox for dvt ppx Continue PT for left tibial ORIF Dispo planning-Pain mgmnt, PT clearance on stairs Fall Risk Details Current Medications: Current Medications Generic Name Dose Route Start Last Admin Trade Name Freq PRN Reason Stop Dose Admin Acetaminophen 650 mg 11/05/20 23:25 11/05/20 23:42 Acetaminophen 325 Mg Tablet PO 650 mg Q4H PRN Administration pain Cephalexin HCl 1,000 mg 11/03/20 08:30 11/06/20 03:59 Cephalexin 500 Mg Capsule PO 1,000 mg Q6H MARIELLE Administration Docusate Sodium 100 mg 10/23/20 22:56 11/05/20 21:19 Docusate Sodium 100 Mg Capsule PO 100 mg BID MARIELLE Administration Enoxaparin Sodium 40 mg 11/04/20 16:00 11/05/20 14:34 Enoxaparin Sodium 40 Mg/0.4 Ml Syringe SUBCUT 40 mg Q24H MARIELLE Administration Hydromorphone HCl 0.5 mg 11/03/20 08:44 11/05/20 21:19 Hydromorphone Hcl 1 Mg/Ml Syringe IVPUSH 0.5 mg Q4H PRN Administration Pain, Severe (Pain Scale 7-10) Protocol Ondansetron HCl 4 mg 10/23/20 22:56 11/02/20 23:31 Ondansetron Odt 4 Mg Tab.Rapdis TRANSLINGU 4 mg Q6H PRN Administration nausea Oxycodone HCl 10 mg 10/29/20 07:58 11/05/20 11:14 Oxycodone Hcl Immed Release 5 Mg Tablet PO 10 mg Q6H PRN Administration pain Oxycodone HCl 10 mg 11/02/20 21:03 11/05/20 21:19 Oxycodone Hcl Er 10 Mg Tab.Er.12h PO 10 mg BID MARIELLE Administration Polyethylene Glycol 17 gm 11/05/20 08:07 11/05/20 14:34 Polyethylene Glycol 3350 17 Gm Powd.Pack PO 17 gm DAILY PRN Administration Constipation Sodium Chloride 3 ml 10/24/20 00:00 11/05/20 21:19 0.9 % Sodium Chloride Flush 3 Ml Syringe IVFLUSH 3 ml QSHIFT MARIELLE Administration Time Spent With Patient Time: Total time spent is greater than 50% in coordination of care (as documented) at patient's floor/unit and/or counseling patient: Time with patient: less than 15 minutes Quality Stroke Does the patient have a stroke diagnosis?: No VTE Prior VTE?: No VTE Risk Level:: Medical - moderate - high VTE Device Contraindication: N/A - Device Ordered VTE Drug Contraindication: Treatment Not Indicated
[2020-11-06] MEDS: oxyCODONE HCl ER 10 MG TAB.ER.12H PO ×2 (10:55→20:06)
[2020-11-06] MEDS: 0.9 % Sodium Chloride Flush 3 ML SYRINGE IVFLUSH ×2 (10:55→15:56)
[2020-11-06] MEDS: Docusate Sodium 100 MG CAPSULE PO ×2 (10:55→20:06)
[2020-11-06 11:14] VITALS: BP 110/71; PULSE 78; O2SAT 99
[2020-11-06 11:20] VITALS: BP 128/75; PULSE 85; RESP 17; TEMP 36.2; O2SAT 100
[2020-11-06] MEDS: oxyCODONE HCl Immed Release 5 MG TABLET 10 MG PO ×2 (14:41→22:17)
[2020-11-06 15:44] VITALS: BP 116/71; PULSE 88; RESP 18; TEMP 36.9; O2SAT 97
[2020-11-06] MEDS: Enoxaparin Sodium 40 MG/0.4 ML SYRINGE SUBCUT (15:56)
[2020-11-06 20:00] VITALS: BP 125/68; PULSE 88; RESP 18; TEMP 36.7; O2SAT 98
[2020-11-06] MEDS: Acetaminophen 325 MG TABLET 650 MG PO (20:06)
[2020-11-07] VITALS (7 sets, daily range): BP systolic 95–117; BP diastolic 58–70; PULSE 72–100; RESP 18–20; TEMP 36.1–38.3; O2SAT 97–99
[2020-11-07] MEDS: 0.9 % Sodium Chloride Flush 3 ML SYRINGE IVFLUSH ×4 (00:04→21:17)
[2020-11-07] MEDS: cephALEXin 500 MG CAPSULE 1000 MG PO ×4 (03:19→21:15)
[2020-11-07 06:34] LABS: MANUAL DIFF FLAG NO
[2020-11-07 06:47] LABS: Basophils Percent Auto 0.5 % (0-2); Eosinophils Absolute Auto 0.1 X10*3/uL (0.0-0.4); Hematocrit 26.8 % (42-52); Imm Gran Abs Auto 0.09 X10*3/uL (0.00-0.03); Imm Gran Pct Auto 1.5 % (0.0-0.4); Lymphocytes Absolute Auto 1.9 X10*3/uL (1.2-4.9); Lymphocytes Percent Auto 31.1 % (20-40); Mean Corpuscular HGB Conc 33.6 g/dl (31.0-36.0); Mean Corpuscular Hemoglobin 31.1 pg (27.0-33.0); Mean Corpuscular Volume 92.7 fL (80-98); Mean Platelet Volume 10.2 fL (9.4-12.4); Monocytes Absolute Auto 0.4 X10*3/uL (0.1-1.2); Monocytes Percent Auto 6.6 % (2-11); Neutrophils Absolute Auto 3.5 X10*3/uL (2.0-8.3); Neutrophils Percent Auto 58.3 % (45-73); Platelet Count 224 X10*3/uL (160-400); Red Blood Count 2.89 X10*6/uL (4.60-5.80); Red Cell Distribution Width 14.4 % (11.0-16.0)
[2020-11-07] MEDS: oxyCODONE HCl ER 10 MG TAB.ER.12H PO ×2 (08:00→21:15)
[2020-11-07] MEDS: Docusate Sodium 100 MG CAPSULE PO ×2 (08:00→21:15)
--- NOTE | 2020-11-07 09:56 | PM.PNORT ---
Subjective Subjective Date of Service: 11/07/20 Interval history: POD 5 s/p left tibial ORIF. Patient is resting comfrotably in bed. Pain is well managed. No overnight events. Patient denies abd pain, chest pain, SOB. No additional complaints. Physical Exam Vital Signs: Vital Signs: Last Vital Signs Temp 97.6 F 11/07/20 07:24 Pulse 77 11/07/20 07:24 Resp 18 11/07/20 07:24 BP 117/70 11/07/20 07:24 Pulse Ox 98 11/07/20 07:24 Body Mass Index 34.0 Const: General: cooperative, healthy appearing and no acute distress Resp: Effort & Inspection: normal respiratory effort and able to speak in complete sentences Cardio: Rate: regular rate Peripheral pulses: Peripheral pulses 2+ throughout GI: Palpation (GI): Soft to palpation Skin: Lesions: no lesions Rashes: no rashes Extrem: Other: ?Left tibia bandages are clean, dry, and intact. Prevena intact. Patient is able to move digits. Sensation intact. Pedal pulse intact. Procedures Date of Service Date of Service: 11/07/20 Progress Note: A&P Assessment and plan (1) Fracture of tibial plateau: Status: Acute Assessment and Plan: Continue pain mgmnt Continue Lovenox for dvt ppx Continue PT for left tibial ORIF Dispo planning-Pain mgmnt, PT clearance on stairs Fall Risk Details Current Medications: Current Medications Generic Name Dose Route Start Last Admin Trade Name Freq PRN Reason Stop Dose Admin Acetaminophen 650 mg 11/05/20 23:25 11/06/20 20:06 Acetaminophen 325 Mg Tablet PO 650 mg Q4H PRN Administration pain Cephalexin HCl 1,000 mg 11/03/20 08:30 11/07/20 07:59 Cephalexin 500 Mg Capsule PO 1,000 mg Q6H MARIELLE Administration Docusate Sodium 100 mg 10/23/20 22:56 11/07/20 08:00 Docusate Sodium 100 Mg Capsule PO 100 mg BID MARIELLE Administration Enoxaparin Sodium 40 mg 11/04/20 16:00 11/06/20 15:56 Enoxaparin Sodium 40 Mg/0.4 Ml Syringe SUBCUT 40 mg Q24H MARIELLE Administration Hydromorphone HCl 0.5 mg 11/03/20 08:44 11/05/20 21:19 Hydromorphone Hcl 1 Mg/Ml Syringe IVPUSH 0.5 mg Q4H PRN Administration Pain, Severe (Pain Scale 7-10) Protocol Ondansetron HCl 4 mg 10/23/20 22:56 11/02/20 23:31 Ondansetron Odt 4 Mg Tab.Rapdis TRANSLINGU 4 mg Q6H PRN Administration nausea Oxycodone HCl 10 mg 10/29/20 07:58 11/06/20 22:17 Oxycodone Hcl Immed Release 5 Mg Tablet PO 10 mg Q6H PRN Administration pain Oxycodone HCl 10 mg 11/02/20 21:03 11/07/20 08:00 Oxycodone Hcl Er 10 Mg Tab.Er.12h PO 10 mg BID MARIELLE Administration Polyethylene Glycol 17 gm 11/05/20 08:07 11/05/20 14:34 Polyethylene Glycol 3350 17 Gm Powd.Pack PO 17 gm DAILY PRN Administration Constipation Sodium Chloride 3 ml 10/24/20 00:00 11/07/20 08:00 0.9 % Sodium Chloride Flush 3 Ml Syringe IVFLUSH 3 ml QSHIFT MARIELLE Administration Time Spent With Patient Time: Total time spent is greater than 50% in coordination of care (as documented) at patient's floor/unit and/or counseling patient: Time with patient: less than 15 minutes Quality Stroke Does the patient have a stroke diagnosis?: No VTE Prior VTE?: No VTE Risk Level:: Medical - moderate - high VTE Device Contraindication: N/A - Device Ordered VTE Drug Contraindication: Treatment Not Indicated
[2020-11-07] MEDS: oxyCODONE HCl Immed Release 5 MG TABLET 10 MG PO ×2 (11:47→19:18)
[2020-11-07] MEDS: Enoxaparin Sodium 40 MG/0.4 ML SYRINGE SUBCUT (15:06)
[2020-11-07] MEDS: Acetaminophen 325 MG TABLET 650 MG PO (20:06)
[2020-11-07] MEDS: 0.9 % Sodium Chloride 1,000 ML 999 ML IV (20:15)
[2020-11-08] MEDS: cephALEXin 500 MG CAPSULE 1000 MG PO ×3 (02:35→14:10)
[2020-11-08 03:11] VITALS: BP 107/62; PULSE 69; RESP 14; TEMP 37.1; O2SAT 100
[2020-11-08 05:51] LABS: MANUAL DIFF FLAG NO
[2020-11-08 05:56] LABS: Basophils Percent Auto 0.4 % (0-2); Eosinophils Absolute Auto 0.1 X10*3/uL (0.0-0.4); Eosinophils Percent Auto 1.8 % (0-4); Hematocrit 27.1 % (42-52); Imm Gran Abs Auto 0.06 X10*3/uL (0.00-0.03); Imm Gran Pct Auto 1.1 % (0.0-0.4); Lymphocytes Absolute Auto 1.8 X10*3/uL (1.2-4.9); Lymphocytes Percent Auto 32.8 % (20-40); Mean Corpuscular HGB Conc 33.2 g/dl (31.0-36.0); Mean Corpuscular Hemoglobin 30.7 pg (27.0-33.0); Mean Corpuscular Volume 92.5 fL (80-98); Mean Platelet Volume 10.1 fL (9.4-12.4); Monocytes Absolute Auto 0.4 X10*3/uL (0.1-1.2); Monocytes Percent Auto 6.8 % (2-11); Neutrophils Absolute Auto 3.2 X10*3/uL (2.0-8.3); Neutrophils Percent Auto 57.1 % (45-73); Platelet Count 229 X10*3/uL (160-400); Red Blood Count 2.93 X10*6/uL (4.60-5.80); Red Cell Distribution Width 14.7 % (11.0-16.0); White Blood Count 5.6 X10*3/uL (4.8-10.8)
[2020-11-08] MEDS: 0.9 % Sodium Chloride Flush 3 ML SYRINGE IVFLUSH ×2 (07:27→15:36)
[2020-11-08] MEDS: oxyCODONE HCl ER 10 MG TAB.ER.12H PO (07:27)
[2020-11-08] MEDS: oxyCODONE HCl Immed Release 5 MG TABLET 10 MG PO ×3 (07:27→17:14)
[2020-11-08] MEDS: Docusate Sodium 100 MG CAPSULE PO (07:28)
[2020-11-08] MEDS: Acetaminophen 325 MG TABLET 650 MG PO (07:29)
[2020-11-08 07:48] VITALS: BP 119/71; PULSE 77; RESP 18; TEMP 36; O2SAT 98
[2020-11-08 08:46] VITALS: BP 119/71; PULSE 77; O2SAT 98
[2020-11-08 11:48] VITALS: BP 107/73; PULSE 84; RESP 18; TEMP 36; O2SAT 100
--- NOTE | 2020-11-08 12:05 | MHC.CM.PN ---
PATIENT IS DISCHARGED HOME - SELF CARE. RN AWARE OF PLAN.
--- NOTE | 2020-11-08 14:07 | P.DS_ITS ---
DS: Providers Provider Date of Service: 11/08/20 Date of admission: 10/23/20 23:29 Primary care physician: Unknown Physician Consults: 10/23/20 22:56 Consult to Hospitalist Routine Consulting Provider: Hospitalist Reason For Exam: Routine medical management DS: Diagnosis Discharge Diagnosis (1) Fracture of tibial plateau: Status: Acute DS: Summary Hospital Course Hospital Course: The patient underwent a successful external fixation of the left tiba, later followed by removal ex fix with ORIF of the left tibial plateau, he was transferred to PACU and then to the floor to recover. During their stay, their vitals were stable, afebrile at 98.3 . Labs were unremarkable, H/H 9.0/27.1. POD 1 he was started on Lovenox for DVT ppx, they also received PT/OT services twice a day. Prior to discharge, their dressing was changed, incision clean dry and intact, new Aquacel dressing applied and the plan was to be discharged home. Time Spent with Patient Time attestation: Total time spent providing and/or coordinating discharge services: Discharge coordination time: Greater than 30 minutes Quality: Stroke Does the patient have a stroke diagnosis?: No Physical Exam Vital Signs: Vital Signs: Last Vital Signs Temp 96.8 F 11/08/20 11:48 Pulse 84 11/08/20 11:48 Resp 18 11/08/20 11:48 BP 107/73 11/08/20 11:48 Pulse Ox 100 11/08/20 11:48 Body Mass Index 34.0 Const: General: cooperative, healthy appearing and no acute distress Resp: Effort & Inspection: normal respiratory effort and able to speak in complete sentences Cardio: Rate: regular rate Peripheral pulses: Peripheral pulses 2+ throughout GI: Palpation (GI): Soft to palpation Skin: General skin exam: no rashes or lesions noted Extrem: Other: Incision clean , dry and intact. Moderate swelling, calf supple non tender, NVI. DS: Data Data Completed and Pending Labs on day of discharge: Laboratory Results - last 24 hr 11/08/20 05:18 WBC 5.6 RBC 2.93 L Hgb 9.0 L Hct 27.1 L MCV 92.5 MCH 30.7 MCHC 33.2 RDW 14.7 Plt Count 229 MPV 10.1 Immature Gran % (Auto) 1.1 H Neut % (Auto) 57.1 Lymph % (Auto) 32.8 [place] % (Auto) 6.8 Eos % (Auto) 1.8 Baso % (Auto) 0.4 Lymph # (Auto) 1.8 [place] # (Auto) 0.4 Eos # (Auto) 0.1 Baso # (Auto) 0.0 Abs Immat Gran (auto) 0.06 H Absolute Neuts (auto) 3.2 Absolute Nucleated RBC 0.000 Nucleated RBC % (auto) 0.0 Discharge Plan Discharge Patient Disposition: Home, Self-Care Discharge Diagnosis: ORIF Left Tibial plateau Referrals: Dasha Cortez PA-C [Physician Personal Care Attendant] - 1 Week Discharge Medications: New (DME) Wheelchair See Rx Instructions .Route .MEDSUPPLY Qty: 1 RF: 0 acetaminophen 325 mg Tablet 650 mg PO Q4H PRN (Reason: pain) 30 Days Qty: 240 RF: 0 enoxaparin 40 mg/0.4 mL Syringe 40 mg subcut Q24H 42 Days Qty: 16.8 RF: 0 docusate sodium 100 mg Capsule 100 mg PO BID 14 Days Qty: 28 RF: 0 Continued lisinopril 30 mg tablet 1 tab PO DAILY RF: 0 No Action (DME) walker Misc See Rx Instructions .Route Qty: 1 RF: 0 oxycodone 10 mg tablet 10 mg PO Q4H PRN (Reason: pain) 7 Days Qty: 42 RF: 0 Discharge Orders: Discharge Order (Routine); Ordered 11/08/20 Ordered By: Dasha Cortez Diet: regular diet Activity on Discharge: Use cane or walker Stand Alone Forms: Patient Portal Discharge page Care Plan Goals: Restore function of joint Health Concerns: None Plan of Treatment: Physical Therapy Pain management DVT prophylaxis Assessment: * WBAT with walker * ROM as tolerated * Knee immobilizer intact on at all times-may remove with NWB ROM exercises * Keep dressing clean, dry and intact * Continue anticoagulant * No tub bath or shower-Keep dressing clean, dry and intact * Follow up with orthopedics in 2 weeks Discharge Date/Time: 11/08/20 18:07
[2020-11-08 15:19] VITALS: BP 119/76; PULSE 83; RESP 19; TEMP 36.8; O2SAT 100
[2020-11-08] MEDS: Enoxaparin Sodium 40 MG/0.4 ML SYRINGE SUBCUT (15:36)
--- NOTE | 2020-11-08 16:02 | MHC.CM.PN ---
[facility] UNABLE TO [facility] ([facility] [id number]
--- NOTE | 2020-11-08 16:04 | MHC.CM.PN ---
[facility] [phone] STATES THAT THEY ARE UNABLE TO ACCOMMODATE TRANSPORT FOR PATIENT. [facility]ORT REFERRAL MADE. PLAN IS AMBULANCE COVERING FOR CHAIR [facility]. TIME SCHEDULED FOR 1800. RN AND PATIENT AWARE.
--- NOTE | 2020-11-12 13:18 | P.OP_ITS ---
Operative Note Operative Note Date of Service: 10/25/20 Narrative: Pre-op diagnosis: left tibial plateau fracture Post-op diagnosis: same Procedure: external fixation left tibial plateau fracture Implants: nestor ex fix Surgeon: Ashok Mcintosh MD Anesthesia: GETA Was an Grinding Mill Operator used for this Procedure?: Yes Grinding Mill Operator: Gale Carnes Estimated blood loss (mL): 20 IV fluids (mL): 500 Pathology: none sent Condition: stable Disposition: PACU Procedure in detail Patient brought the operating room placed supine on the operative table and prepped and draped in standard sterile fashion. Time-out was called to identify proper site procedure proper surgeon IV antibiotics per weight were administered. I began by applying axial traction and visualizing the fracture using biplanar fluoroscopy. This was a Schatzker 6 tibial plateau fracture with diaphyseal extension and will his lower extremity was too swollen to cut the skin for an ORIF and the decision was made to proceed with external fixation. I began by placing 2 Lindsay pins through the femoral diaphysis from lateral to medial. Stab incision it is were performed and blunt dissection was taken down to the bone. Once this was done I turned my attention to the distal medial tibia where stab incisions were made and blunt dissection was taken down to bone and 2 Steinmann pins were placed bicortically. I used biplanar fluoroscopy to confirm the position of the Steinmann pins and then my external fixator was assembled with 1 bar proximal lateral and 1 bar distal and medial and 1 interconnected par. These were all tightened and the fracture was identified with biplanar fluoroscopy and I was happy with the alignment. I then irrigated copiously and placed Xeroform and sterile dressings around the pin sites and the patient was extubated and brought to recovery room stable condition there were no known complications.
--- NOTE | 2020-11-12 13:21 | W.PM.OPN ---
Operative Note Operative Note Date of Service: 11/02/20 Narrative: re-op diagnosis: left tibia fracture Post-op diagnosis: same Procedure: orif left tibia Implants: nestor Surgeon: Ashok Mcintosh MD Anesthesia: GETA and local Was an Tar And Ammonia Pump Operator used for this Procedure?: Yes Tar And Ammonia Pump Operator: Dasha Cortez Estimated blood loss (mL): 500 Tourniquet time (min): 120 IV fluids (mL): 2,200 Pathology: none sent Condition: stable Disposition: PACU Procedure in detail Patient brought the operating room placed supine on the operative table. All bony prominences were well padded he was prepped and draped in standard sterile fashion. A time-out was called to identify proper site procedure proper surgeon IV antibiotics per weight were administered. I began by removing the previously placed external fixation Steinmann pins and the external fixator device. Once this was done I insufflated the tourniquet to 300 mm mercury and made a anteromedial incision from approximately 2 cm proximal to the joint line extending down and additional 15 cm. Starting from distal to proximal the tibial crest was identified and once the posterior compartment fascia was opened up distally and proximally I used periosteal elevator to identify the diaphyseal fracture and then worked my way up proximally to the pes anserine tendons. I then dissected posteriorly at this point crossing the knee joint but not the violating the capsule. I was able to dissect back posteriorly just distal to the joint line and placed the tip of a large tenaculum on the displaced posterior plateau fragment. I then compressed this to the anterior fragment while elevating it slightly. I was satisfied with this reduction both visually and using biplanar fluoroscopy and a medial tibial plateau locking plate was selected. This was long enough to span the fracture by 5 screw holes. I slid this down to its most distal extent after periosteal elevation and proximally with made sure that the posterior locking hole engage the displaced posterior articular fragment. Some care was taken to make sure the plate was appropriately positioned along the distal tibial shaft and that the diaphyseal fracture was reduced well at the same time maintaining the position of the plate proximally. Once I was happy with both these parameters I placed 7 screws proximal to the fracture 5 of which were proximal locking and 2 of which were diaphyseal bicortical. I then placed a bicortical nonlocking screws distal to the fracture. Again biplanar fluoroscopy was used to confirm appropriate plate position and fracture reduction. Once I was happy with this I irrigated copiously and turned my attention to the lateral plateau. Making a standard lazy-S incision over the lateral joint line extending down anterolaterally to the fracture site. Again this incision was approximately 25 cm. The anterior and lateral compartment fascia was opened up proximally and distally and periosteal elevation was used to identify the anterior tibia at the site of the fracture. A long lateral tibial plateau plate was selected and care was taken to confirm its positioning on both the distal fragment in the proximal segment. I incised the capsule and the coronal ligaments and elevated the meniscus to visualize the fracture. There was a depressed fragment posterolaterally that I was able to approach via the anterolateral metadiaphysis with a punch. I elevated the joint line and placed 15 mL of HydroSet. Once the HydroSet was firm I was able to drill my 4 locking screws just distal to the joint. This maintained the height of the lateral plateau and prior to this I used a large tenaculum to compress the lateral plateau to the medial plateau. Once I was satisfied with the position of the plate I used bicortical nonlocking screws to compress the plate to the bone. I had excellent reduction of the fracture both at the diaphysis and at the joint line. Six cortices were used distal to the diaphyseal fracture. At this point I examined the joint line I was happy with the reduction and using biplanar fluoroscopy I was happy with the width and the height of the plateau. Distally I was satisfied with the reduction of the diaphyseal fragment and the stability of this construct. I then repaired the lateral meniscus to the coronal ligaments and the wounds were irrigated copiously. Capsular closure was performed and then a subcuticular absorbable layer both medially and laterally and the skin was repaired with antonietta. I then irrigated the external fixation sites and sterile dressings were applied. A Proveena wound dressing was used medially and laterally given the soft tissue swelling. Of note the tourniquet was let down after 120 minutes. Patient was brought to recovery room stable condition there were no known complications.
== END 2020-11-08 18:07 | disposition home or self-care (01) | DRG 313 ==
LOC: HO.ED 20:26 → HO.EDOVER 23:34 → HO.S3 23:39
PROVIDERS: Anesthesiology; Nurse Practitioner Family; Orthopaedic Surgery; Physician Assistant; Admitting Provider Physician Assistant; Emergency Provider Emergency Medicine Emergency Medical Services; Visit Provider Physician Assistant
PROC: 0QHH35Z Insertion of External Fixation Device into Left Tibia, Percutaneous Approach (ICD-10-PCS; principal; 2020-10-25 16:00)
PROC: 0QSH04Z Reposition Left Tibia with Internal Fixation Device, Open Approach (ICD-10-PCS; principal; 2020-11-02 12:30)
DX: S82.142A Displaced bicondylar fracture of left tibia, initial encounter for closed fracture (principal); E87.1 Hypo-osmolality and hyponatremia; W17.89XA Other fall from one level to another, initial encounter; I10 Essential (primary) hypertension; F17.210 Nicotine dependence, cigarettes, uncomplicated; Z71.6 Tobacco abuse counseling; Z20.822 Contact with and (suspected) exposure to COVID-19; Z79.899 Other long term (current) drug therapy
CPT/HCPCS: 36415; 73552; 73590; 73600; 73700; 80048; 85014; 85018; 85025; 85610; 85730; 86850; 86900; 86901; 86923; 87635; 90471; 90715; 93005; 96374; 96375; 97110; 97116; 97162; 97166; 97530; 97535; 99285; 99291; C1713; J0131; J0690; J1100; J1170; J1650; J2250; J2270; J2370; J2405; J3010; P9016

== ENCOUNTER → 2020-11-15 11:32 | Outpatient (BNVA) | payer OTHER, SELFPAY | PROVIDERS: Visit Provider Physician Assistant | DX: Z47.1 Aftercare following joint replacement surgery (principal); I10 Essential (primary) hypertension; F17.210 Nicotine dependence, cigarettes, uncomplicated; Z96.698 Presence of other orthopedic joint implants | CPT/HCPCS: 99212 ==

== ENCOUNTER → 2020-11-22 09:29 | Outpatient (BNVA) | payer OTHER, SELFPAY | PROVIDERS: Visit Provider Physician Assistant | DX: S82.142D Displaced bicondylar fracture of left tibia, subsequent encounter for closed fracture with routine healing (principal) | CPT/HCPCS: 99212 ==

== ENCOUNTER → 2020-11-29 13:41 | Outpatient (BNVA) | payer OTHER, SELFPAY | PROVIDERS: Visit Provider Physician Assistant | DX: S82.142D Displaced bicondylar fracture of left tibia, subsequent encounter for closed fracture with routine healing (principal) | CPT/HCPCS: 11042; 99212 ==

== ENCOUNTER 2020-12-03 09:05 | Outpatient (REF) | payer OTHER, SELFPAY ==
--- NOTE | ~2020-12-03 | XR_ITS ---
EXAMINATION: XR KNEE, AP AND LATERAL VIEWS, LEFT XR TIBIA AND FIBULA, AP AND LATERAL VIEWS, LEFT CLINICAL INFORMATION: Displaced fractures. COMPARISON: 11/02/2020, 10/25/2020, 10/23/2020. TECHNIQUE: AP and lateral views of the left knee and AP and lateral views of the left tibia and fibula. FINDINGS: AP and lateral views of the left knee and tibia demonstrate surgical hardware placement for the comminuted displaced proximal left tibial fracture with involvement of both the medial and lateral tibial plateaus. Hardware appears intact. There is some increased density seen about the proximal tibial fracture site related to cement. Alignment is improved compared to previous surgical imaging. There is a bony fragment which is seen to lie lateral to the lateral tibial plate and side screws which may correlate to anterior tibial bony defect. There is a left knee effusion. Metallic foreign body is again seen within the soft tissues of the distal femur medially. XR/XR tibia fibula LT 2V IMPRESSION: Post surgical repair of a severely comminuted and displaced fracture of the proximal left tibia as described.
--- NOTE | ~2020-12-03 | XR_ITS ---
EXAMINATION: XR KNEE, AP AND LATERAL VIEWS, LEFT XR TIBIA AND FIBULA, AP AND LATERAL VIEWS, LEFT CLINICAL INFORMATION: Displaced fractures. COMPARISON: 11/02/2020, 10/25/2020, 10/23/2020. TECHNIQUE: AP and lateral views of the left knee and AP and lateral views of the left tibia and fibula. FINDINGS: AP and lateral views of the left knee and tibia demonstrate surgical hardware placement for the comminuted displaced proximal left tibial fracture with involvement of both the medial and lateral tibial plateaus. Hardware appears intact. There is some increased density seen about the proximal tibial fracture site related to cement. Alignment is improved compared to previous surgical imaging. There is a bony fragment which is seen to lie lateral to the lateral tibial plate and side screws which may correlate to anterior tibial bony defect. There is a left knee effusion. Metallic foreign body is again seen within the soft tissues of the distal femur medially. XR/XR knee LT 2V IMPRESSION: Post surgical repair of a severely comminuted and displaced fracture of the proximal left tibia as described.
== END 2020-12-03 09:06 | disposition home or self-care (01) ==
LOC: HO.HOSX 09:05
PROVIDERS: Visit Provider Orthopaedic Surgery
DX: S82.142D Displaced bicondylar fracture of left tibia, subsequent encounter for closed fracture with routine healing (principal)
CPT/HCPCS: 73560; 73590; 99212

== ENCOUNTER → 2020-12-09 08:51 | Outpatient (BNVA) | payer OTHER, SELFPAY | PROVIDERS: Visit Provider Physician Assistant | DX: S82.142D Displaced bicondylar fracture of left tibia, subsequent encounter for closed fracture with routine healing (principal); T14.8XXD Other injury of unspecified body region, subsequent encounter | CPT/HCPCS: 99212 ==

== ENCOUNTER → 2020-12-17 09:57 | Outpatient (BNVA) | payer OTHER, SELFPAY | PROVIDERS: Visit Provider Physician Assistant | DX: T14.8XXD Other injury of unspecified body region, subsequent encounter (principal); S82.142D Displaced bicondylar fracture of left tibia, subsequent encounter for closed fracture with routine healing | CPT/HCPCS: 99212 ==

== ENCOUNTER → 2020-12-30 09:51 | Outpatient (BNVA) | payer OTHER, SELFPAY | PROVIDERS: Visit Provider Physician Assistant | DX: S82.142D Displaced bicondylar fracture of left tibia, subsequent encounter for closed fracture with routine healing (principal) | CPT/HCPCS: 99212 ==

== ENCOUNTER 2021-02-10 08:01 | Outpatient (REF) | payer OTHER, SELFPAY | END 2021-02-10 08:02 | disposition home or self-care (01) | LOC: HO.HOSX 08:01 | PROVIDERS: Visit Provider Physician Assistant | DX: Z13.89 Encounter for screening for other disorder (principal) ==

== ENCOUNTER 2021-10-24 08:44 | Outpatient (REF) | payer OTHER, SELFPAY ==
--- NOTE | ~2021-10-24 | XR_ITS ---
EXAMINATION: XR KNEE, LEFT XR LOWER LEG, LEFT CLINICAL INFORMATION: Fracture. COMPARISON: Previous x-ray, most recent November 2020. TECHNIQUE: 2 views of the left knee and 2 views of the left lower leg. FINDINGS: The bones are osteopenic. There are lateral plates and screws transfixing the comminuted left proximal tibial fracture. Orthopedic hardware appears unchanged with lucency adjacent to the medial plate that appears unchanged. There is a comminuted fracture of the proximal tibia. Fracture lines are still seen. There is interval increase in bony callus attenuation suggestive of a healing. Alignment appears unchanged. There is artifact from removed hardware in the more inferior tibial shaft. Bones are osteopenic. There is a small radiopaque soft tissue foreign body projecting over the anterior medial knee that is stable. There is a small joint effusion. XR/XR tibia fibula LT 2V IMPRESSION: Osteopenia. Healing comminuted proximal tibial fracture. Stable appearance to orthopedic hardware from November 2020.
--- NOTE | ~2021-10-24 | XR_ITS ---
EXAMINATION: XR KNEE, LEFT XR LOWER LEG, LEFT CLINICAL INFORMATION: Fracture. COMPARISON: Previous x-ray, most recent November 2020. TECHNIQUE: 2 views of the left knee and 2 views of the left lower leg. FINDINGS: The bones are osteopenic. There are lateral plates and screws transfixing the comminuted left proximal tibial fracture. Orthopedic hardware appears unchanged with lucency adjacent to the medial plate that appears unchanged. There is a comminuted fracture of the proximal tibia. Fracture lines are still seen. There is interval increase in bony callus attenuation suggestive of a healing. Alignment appears unchanged. There is artifact from removed hardware in the more inferior tibial shaft. Bones are osteopenic. There is a small radiopaque soft tissue foreign body projecting over the anterior medial knee that is stable. There is a small joint effusion. XR/XR knee LT 2V IMPRESSION: Osteopenia. Healing comminuted proximal tibial fracture. Stable appearance to orthopedic hardware from November 2020.
== END 2021-10-24 08:45 | disposition home or self-care (01) ==
LOC: HO.HOSX 08:44
PROVIDERS: Visit Provider Orthopaedic Surgery
DX: S82.142A Displaced bicondylar fracture of left tibia, initial encounter for closed fracture (principal); M25.562 Pain in left knee
CPT/HCPCS: 73560; 73590; 99212

== ENCOUNTER 2022-03-23 09:05 | Outpatient (REF) | payer OTHER, SELFPAY ==
--- NOTE | ~2022-03-23 | XR_ITS ---
EXAMINATION: XR knee LT 2V, XR knee standing BI CLINICAL INFORMATION: Reason for Exam M25.569 - Pain in unspecified knee COMPARISON: Knee radiographs 10/24/2021 TECHNIQUE: Two views of the left knee and one view of the bilateral knees standing. FINDINGS: * No acute fracture or dislocation. 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 * Moderate degenerative changes of the right knee involving the medial compartment where there is loss of joint space.
== END 2022-03-23 09:06 | disposition home or self-care (01) ==
LOC: HO.HOSX 09:05
PROVIDERS: Visit Provider Orthopaedic Surgery
DX: S82.142A Displaced bicondylar fracture of left tibia, initial encounter for closed fracture (principal)
CPT/HCPCS: 73560; 73565; 99212